=== PATIENT | male | born 1990 | race Caucasian/White ===

== ENCOUNTER 2016-12-03 15:03 | Emergency (ER) | payer OTHER ==
[2016-12-03] MEDS ORDERED: METHOCARBAMOL 750 MG TABLET PO ONE (18:25)
[2016-12-03] MEDS ORDERED: KETOROLAC TROMETHAMINE 60 MG/2 ML SDV IM ONE (18:25)
--- NOTE | 2016-12-03 18:26 | ER Document Report ---
ED General - General Chief Complaint: Back Pain Stated Complaint: BACK PAIN Information source: Patient TRAVEL OUTSIDE OF THE [place] IN LAST 30 DAYS: No - HPI Onset: Other - This 26-year-old male who states he's had lower back pain more since ow although he's had it most of his life - Related Data Allergies/Adverse Reactions: Penicillins Allergy (Verified 12/03/16 15:21) tramadol [Tramadol] Allergy (Verified 12/03/16 15:21) Past Medical History - General Information source: Patient - Social History Smoking Status: Current Every Day Smoker Chew tobacco use (# tins/day): Yes Frequency of alcohol use: Social Drug Abuse: None Family History: Arthritis, CAD, DM, Hyperlipidemia, Hypertension, Malignancy, Thyroid Disfunction Patient has suicidal ideation: No Patient has homicidal ideation: No - Past Medical History Cardiac Medical History: Reports: Hx Hypertension Neurological Medical History: Reports: Hx Seizures Musculoskeltal Medical History: Reports Hx Arthritis, Reports Hx Musculoskeletal Deformity, Reports Hx Musculoskeletal Trauma Psychiatric Medical History: Reports: Hx Anxiety, Hx Attention Deficit Hyperactivity Disorder, Hx Bipolar Disorder, Hx Borderline Personality Disorder , Hx Depression, Hx Post Traumatic Stress Disorder, Hx Schizophrenia - paranoid schezophrenia Past Surgical History: Reports: Hx Orthopedic Surgery - rt knee, Hx Tonsillectomy - Immunizations Immunizations up to date: Yes Hx Diphtheria, Pertussis, Tetanus Vaccination: Yes Review of Systems - Review of Systems Constitutional: No symptoms reported EENT: No symptoms reported Cardiovascular: No symptoms reported Respiratory: No symptoms reported Gastrointestinal: No symptoms reported Genitourinary: No symptoms reported Male Genitourinary: No symptoms reported Musculoskeletal: No symptoms reported Skin: No symptoms reported Hematologic/Lymphatic: No symptoms reported Neurological/Psychological: No symptoms reported Physical Exam - Vital signs Interpretation: Normal - General General appearance: Appears well, Alert - HEENT Head: Normocephalic, Atraumatic Eyes: Normal Pupils: PERRL - Respiratory Respiratory status: No respiratory distress Chest status: Nontender Breath sounds: Normal Chest palpation: Normal - Cardiovascular Rhythm: Regular Heart sounds: Normal auscultation Murmur: No - Abdominal Inspection: Normal Distension: No distension Bowel sounds: Normal Tenderness: Nontender Organomegaly: No organomegaly - Back Back: Normal, Nontender, Other - No numbness or tingling or loss of bowel or bladder function or saddle anesthesia ambulatory with rhythmic and steady gait good distal pulses. Patient does have palpable spasm right lateral of midline no step-off no crepitus no injury noted. - Extremities General upper extremity: Normal inspection, Nontender, Normal color, Normal ROM , Normal temperature General lower extremity: Normal inspection, Nontender, Normal color, Normal ROM , Normal temperature, Normal weight bearing. No: Anthony's sign - Neurological Neuro grossly intact: Yes Cognition: Normal Orientation: AAOx4 Sydnie Coma Scale Eye Opening: Spontaneous Sydnie Coma Scale Verbal: Oriented Sydnie Coma Scale Motor: Obeys Commands Sydnie Coma Scale Total: 15 Speech: Normal Motor strength normal: LUE, RUE, LLE, RLE Sensory: Normal - Psychological Associated symptoms: Normal affect, Normal mood - Skin Skin Temperature: Warm Skin Moisture: Dry Skin Color: Normal Discharge - Discharge Clinical Impression: Thoracic back pain, degenerative thoracic pain Disposition: HOME, SELF-CARE Prescriptions: Gabapentin [Neurontin 300 mg Capsule] 300 mg PO Q8 #90 cap
[2016-12-03 19:15] VITALS: BP 138/91
== END 2016-12-03 19:16 | disposition home or self-care (01) ==
LOC: ER 15:03
DX: M54.6 Pain in thoracic spine (principal); M51.34 Other intervertebral disc degeneration, thoracic region; M54.5 Low back pain; F17.210 Nicotine dependence, cigarettes, uncomplicated; I10 Essential (primary) hypertension; Z88.0 Allergy status to penicillin
CPT/HCPCS: 99283; 96372; J1885; J3490

== ENCOUNTER 2018-06-21 13:56 | Emergency (ER) | payer OTHER ==
[2018-06-21 14:09] VITALS: BP 153/79
[2018-06-21] MEDS ORDERED: DEXAMETHASONE SOD PHOS INJ 10 MG/1 ML VIAL IM ONE (14:39)
[2018-06-21] MEDS ORDERED: KETOROLAC TROMETHAMINE INJ/PF 30 MG/1 ML SDV IM ONE (14:39)
--- NOTE | 2018-06-21 14:45 | ER Document Report ---
HPI - HPI Pain Level: 4 Notes: Patient is a 27-year-old male who presents to the ED complaining of ongoing chronic and occasionally low back pain 2 years. Patient states that he did have an MRI couple years ago which showed degenerative disc disease of possible disc bulge. Patient states that he has been seen by his primary care doctor and was told that he should go to pain management as he was on narcotics. Patient states that he has been eating and drinking without difficulties. He is urinating normally and having normal bowel movements. He has not had any injections or procedures to his back. Denies any previous history of spinal abscess. Patient states that twisting movements make his pain worse. He has not had any recent injury. No other concerns or complaints. Patient is requesting narcotics. Denies any headache, fever, URI, sore throat, chest pain , palpitations, syncope, cough, shortness of breath, wheeze, dyspnea, abdominal pain, nausea/vomiting/diarrhea, urinary retention, dysuria, hematuria, loss of control of bowel or bladder, numbness/tingling, saddle anesthesia, muscle paralysis/weakness, or rash. - ROS Systems Reviewed and Negative: Yes All other systems reviewed and negative Past Medical History - Social History Smoking Status: Unknown if Ever Smoked Family History: Arthritis, CAD, DM, Hyperlipidemia, Hypertension, Malignancy, Thyroid Disfunction - Past Medical History Cardiac Medical History: Reports: Hx Hypertension Neurological Medical History: Reports: Hx Seizures Musculoskeletal Medical History: Reports Hx Arthritis, Reports Hx Musculoskeletal Deformity, Reports Hx Musculoskeletal Trauma Psychiatric Medical History: Reports: Hx Anxiety, Hx Attention Deficit Hyperactivity Disorder, Hx Bipolar Disorder, Hx Borderline Personality Disorder , Hx Depression, Hx Post Traumatic Stress Disorder, Hx Schizophrenia - paranoid schezophrenia Past Surgical History: Reports: Hx Orthopedic Surgery - rt knee, Hx Tonsillectomy - Immunizations Immunizations up to date: Yes Hx Diphtheria, Pertussis, Tetanus Vaccination: Yes Vertical Provider Document - CONSTITUTIONAL Agree With Documented VS: Yes Notes: PHYSICAL EXAMINATION: GENERAL: Well-appearing, well-nourished and in no acute distress. LUNGS: Breath sounds clear to auscultation bilaterally and equal. No wheezes rales or rhonchi. HEART: Regular rate and rhythm without murmurs, rubs, gallops. ABDOMEN: Soft, nontender, nondistended abdomen. No guarding, no rebound. No masses appreciated. Normal bowel sounds present. No CVA tenderness bilaterally. No pulsatile mass Musculoskeletal: LE's b/l: FROM to passive/active. Strength 5+/5. No deficits noted. No bony tenderness of extremities. Back: FROM to passive/active. Strength 5+/5. No vertebral point tenderness, stepoffs, or deformities. No other bony tenderness, erythema, swelling, or ecchymosis. SLR negative b/l. + mild tenderness to the T/L-paraspinal mm b/l, correlate with pain described. Mild spasming. No SI jt tenderness. No foot drop Extremities: No cyanosis, clubbing, or edema b/l. Peripheral pulses 2+. Capillary refill less than 2 seconds. NEUROLOGICAL: Normal speech, normal gait. Normal sensory, motor exams. Reflexes 2+ b/l. PSYCH: Normal mood, normal affect. SKIN: Warm, Dry, normal turgor, no rashes or lesions noted. - INFECTION CONTROL TRAVEL OUTSIDE OF THE [place] IN LAST 30 DAYS: No Course - Re-evaluation Re-evalutation: 06/21/18 14:42 Patient is an afebrile, well-hydrated, 27-year-old male who presents to the ED with acute on chronic low back pain. Vitals are acceptable. PE is otherwise unremarkable for any focal neurological deficits. Patient was given Decadron, Toradol. He has no significant tachycardia, tachypnea, or hypoxia. He is nontoxic-appearing and is tolerating p.o. without difficulties. There are no signs of infection. No other red flag symptoms noted. No other labs or imaging warranted at this time based on H&P. Low suspicion for any meningitis, fracture, expanding/ruptured AAA, cauda equina syndrome, epidural mass lesion/ abscess, herniated disc causing severe spinal stenosis, or other systemic infection at this time. Patient is aware that his condition can change from initial presentation and that he needs monitor symptoms closely for any acute changes. I will send him home with a prescription for baclofen and naproxen. Conservative measures otherwise for symptoms. Recheck with your PCM in 3-5 days. Consider consult with orthopedic/physical therapy. Return to the ED with any worsening/concerning symptoms otherwise as reviewed discharge. Patient is in agreement. - Vital Signs Vital signs: Temp Pulse Resp BP Pulse Ox 98.8 F 89 18 153/79 H 99 06/21/18 14:08 06/21/18 14:08 06/21/18 14:08 06/21/18 14:08 06/21/18 14:08 Discharge - Discharge Clinical Impression: Thoracic back pain Qualifiers: Chronicity: acute Back pain laterality: bilateral Qualified Code(s): M54.6 - Pain in thoracic spine Low back pain Qualifiers: Chronicity: acute Back pain laterality: bilateral Sciatica presence: without sciatica Qualified Code(s): M54.5 - Low back pain Condition: Stable Disposition: HOME, SELF-CARE Instructions: Low Back Pain ([facility]), Muscle Relaxers ([facility]) Additional Instructions: Rest, Ice, Compression Tylenol/ibuprofen as needed Light stretches daily Strength exercises as able Moist heat and massage may help F/u with your PCP in 3-5 days for a recheck Consider consult(s) with Orthopedics/physical therapy for ongoing/worsening symptoms Return to the ED with any worsening symptoms and/or development of fever, headache, chest pain, palpitations, syncope, shortness of breath, trouble breathing, abdominal pain, n/v/d, blood in stool/urine, loss of control of bowel /bladder, urinary retention, muscle weakness/paralysis, saddle anesthesia, numbness/tingling, or other worsening symptoms that are concerning to you. Prescriptions: Baclofen [Baclofen 10 mg Tablet] 5 - 10 mg PO BID PRN #15 tablet PRN Reason: Naproxen 500 mg PO BID PRN #30 tablet PRN Reason: Forms: Elevated Blood Pressure Referrals: [facility] [Provider Group] - Follow up as needed
== END 2018-06-21 15:16 | disposition home or self-care (01) ==
LOC: ER 13:56
DX: M54.6 Pain in thoracic spine (principal); M54.5 Low back pain; G89.29 Other chronic pain; Z79.899 Other long term (current) drug therapy; I10 Essential (primary) hypertension; R25.2 Cramp and spasm
CPT/HCPCS: 99283; 96372; J1885; J1100

== ENCOUNTER 2018-10-18 14:03 | Emergency (ER) | payer OTHER ==
[2018-10-18] MEDS ORDERED: KETOROLAC TROMETHAMINE 60 MG/2 ML SDV IM ONE (15:48)
[2018-10-18] MEDS ORDERED: DEXAMETHASONE SOD PHOS INJ 10 MG/1 ML VIAL IM ONE (15:48)
[2018-10-18] MEDS ORDERED: ONDANSETRON 4 MG TAB.RAPDIS PO ONE (15:50)
--- NOTE | 2018-10-18 16:21 | ER Document Report ---
ED General Pain - General Chief Complaint: Back Pain Stated Complaint: BACK PAIN/VOMITING Time Seen by Provider: 10/18/18 14:24 Mode of Arrival: Ambulatory Information source: Patient Notes: Patient is a 28-year-old male comes to the emergency room complaining of an acute exacerbation of chronic pain. Patient states that his "sciatica is acting up", his mid back thoracic pain where he has a herniated disc is acting up. States that he is not eating much he is complaining of the pain in the spine is stopped him from eating. He states his left sciatica is really worked into a knot and he can hardly sit or stand. States that it feels like it builds up with pressure and he just needs to be released. Patient states he does not want to move because the pain is so bad. He is vomited secondary to the amount of pain he is having. Primary pain though not only the left sciatica but also mid thoracic between the shoulder blade pain which is his area of major complaint today. He states that [facility] did a an MRI having been in 2014 found a herniated disc in this area and every once in a while it acts up and he needs extra pain medication. Patient states he was going to [facility] and they were working with him well but he somehow was a day late in returning paperwork to them in the chart to monitor dollars which she cannot pay so he is not been able to go to them for several months. He states his mother occasionally getting 5 hours here in $5 there he buy some boost to also help quiet his pain down but he has not had any in a couple of days. He also informs me he is applying for disability and is hoping that that will come through soon so that he can return to [facility] at that time because they will accept his disability papers. Patient denies any loss of urine or stool. Denies any recent injuries or trauma. Patient is lying on the gurney in no apparent distress playing with his phone when I walk in the room. TRAVEL OUTSIDE OF THE [place] IN LAST 30 DAYS: No - HPI Onset: Last week Onset/Duration: Gradual, Persistent, Worse Quality of pain: Achy, Pressure, Throbbing Severity: Severe Pain Level: 5 Context: Chronic problem Typical of prior episodes of painful crisis: Yes Genotype: unknown Associated symptoms: Other - Vomiting secondary to pain Exacerbated by: Standing, Movement, Walking Relieved by: Remaining still Similar symptoms previously: Yes Recently seen / treated by doctor: No - Related Data Allergies/Adverse Reactions: Penicillins Allergy (Verified 06/21/18 14:00) tramadol [Tramadol] Allergy (Verified 06/21/18 14:00) Past Medical History - General Information source: Patient - Social History Smoking Status: Current Every Day Smoker Cigarette use (# per day): Yes - Half-pack cigarettes a day Chew tobacco use (# tins/day): No Smoking Education Provided: Yes Frequency of alcohol use: Occasional Drug Abuse: None Family History: Reviewed & Not Pertinent, Arthritis, CAD, DM, Hyperlipidemia, Hypertension, Malignancy, Thyroid Disfunction Patient has suicidal ideation: No Patient has homicidal ideation: No - Past Medical History Cardiac Medical History: Reports: Hx Hypertension Neurological Medical History: Reports: Hx Seizures Renal/ Medical History: Denies: Hx Peritoneal Dialysis Musculoskeletal Medical History: Reports Hx Arthritis, Reports Hx Musculoskeletal Deformity, Reports Hx Musculoskeletal Trauma Psychiatric Medical History: Reports: Hx Anxiety, Hx Attention Deficit Hyperactivity Disorder, Hx Bipolar Disorder, Hx Borderline Personality Disorder , Hx Depression, Hx Post Traumatic Stress Disorder, Hx Schizophrenia - paranoid schezophrenia Past Surgical History: Reports: Hx Orthopedic Surgery - rt knee, Hx Tonsillectomy - Immunizations Immunizations up to date: Yes Hx Diphtheria, Pertussis, Tetanus Vaccination: Yes Review of Systems - Review of Systems Constitutional: No symptoms reported EENT: No symptoms reported Cardiovascular: No symptoms reported Respiratory: No symptoms reported Gastrointestinal: See HPI, Vomiting Genitourinary: No symptoms reported Male Genitourinary: No symptoms reported Musculoskeletal: See HPI, Back pain Skin: No symptoms reported Hematologic/Lymphatic: No symptoms reported Neurological/Psychological: No symptoms reported -: Yes All other systems reviewed and negative Physical Exam - Vital signs Vitals: Temp Pulse Resp BP Pulse Ox 98.8 F 85 14 147/89 H 98 10/18/18 14:09 10/18/18 14:09 10/18/18 14:09 10/18/18 14:09 10/18/18 14:09 Interpretation: Hypertensive - Notes Notes: PHYSICAL EXAMINATION: GENERAL: Patient is a well-nourished well-developed morbidly obese 28-year-old male who on physical exam is in no apparent distress. Patient is laying comfortably on the gurney playing with his phone as I walk in the room. At that point patient was holding down and starts to mom. HEAD: Atraumatic, normocephalic. EYES: Pupils equal round and reactive to light, extraocular movements intact, sclera anicteric, conjunctiva are normal. ENT: Nares patent, oropharynx clear without exudates. Moist mucous membranes. NECK: Normal range of motion, supple without lymphadenopathy LUNGS: Breath sounds clear to auscultation bilaterally and equal. No wheezes rales or rhonchi. HEART: Regular rate and rhythm without murmurs ABDOMEN: Soft, nontender, nondistended abdomen. No guarding, no rebound. No masses appreciated. Musculoskeletal: Examination of patient's back shows that he has some mild tenderness in the lower lumbar spine area to palpation with a positiv sciatic notch tenderness on the left-hand side. Patient has good DTRs in the lower extremities when distracted. He has a good vascular exam with good dorsalis pedal pulses bilateral straight leg raise on the left is positive to 25 degrees. Patient has good strength against resistance with the lower extremities with abduction and abduction. No foot droop is seen. There is no saddle paresthesia. Patient has good sensation throughout the lower extremities. NEUROLOGICAL: Cranial nerves grossly intact. Normal speech, normal gait. Normal sensory, motor exams PSYCH: Normal mood, normal affect. SKIN: Warm, Dry, normal turgor, no rashes or lesions noted. Course - Re-evaluation Re-evalutation: 10/18/18 21:14 I had a long talk with patient informed him that he needed to get back with a plan of action with his pain management group at [facility]. I have also given him the name of the orthopedic doctors masonry teacher and informed him that he can contact her office to see if they can accommodate him if the pain discomfort continues to get worse. I went back in and looked at the other histories of patient being here and the back pains that he has complained of in the past and has been treated pretty much basically the same way at all events he has been put on or given in the ER Toradol and Decadron shots together been sent home on baclofen gabapentin and occasionally steroid pack. Therefore it is how I am going to treat patient this time. And he accepted that treatment plan. - Vital Signs Vital signs: Temp Pulse Resp BP Pulse Ox 99.1 F 73 16 140/69 H 99 10/18/18 17:53 10/18/18 17:53 10/18/18 17:53 10/18/18 17:53 10/18/18 17:53 Discharge - Discharge Clinical Impression: Sciatica Qualifiers: Laterality: left Qualified Code(s): M54.32 - Sciatica, left side Degenerative disc disease Qualifiers: Spinal region: thoracic Qualified Code(s): M51.34 - Other intervertebral disc degeneration, thoracic region Condition: Stable Disposition: HOME, SELF-CARE Instructions: Herniated Disc ([facility]), Ice Packs ([facility]), Muscle Strain ([facility]) Additional Instructions: As we discussed you you need to establish with [facility] again or someone else who you prefer. I will give you the names of the orthopedics masonry teacher you may contact your office to see if they can accommodate you. Ice to the back 3 times a day. Avoid do any lifting moving or pulling return to ER if you have any concerns or problems. As we discussed I went back and searched over year history and pre-much the treatment of giving you is what is a combination of all for everyone's treatment. We will attempt the same thing along with some medication for nausea. Prescriptions: Baclofen [Baclofen 10 mg Tablet] 10 mg PO TID #30 tab Gabapentin [Neurontin 300 mg Capsule] 300 mg PO Q8 #90 cap Prednisone 10 mg PO ASDIR PRN 6 Days #1 tab.ds.pk PRN Reason: Promethazine HCl [Phenergan 25 mg Tablet] 1 tab PO Q6H PRN #12 tablet PRN Reason: Forms: Smoking Cessation Education [facility] [NO LOCAL MD] - Follow up as needed
[2018-10-18 17:54] VITALS: BP 140/69
== END 2018-10-18 17:55 | disposition home or self-care (01) ==
LOC: ER 14:03
DX: M54.32 Sciatica, left side (principal); M51.34 Other intervertebral disc degeneration, thoracic region; M54.9 Dorsalgia, unspecified; G89.29 Other chronic pain; R11.10 Vomiting, unspecified; F17.210 Nicotine dependence, cigarettes, uncomplicated; I10 Essential (primary) hypertension
CPT/HCPCS: 99283; 96372; J1885; S0119; J1100

== ENCOUNTER 2018-10-24 09:45 | Emergency (ER) | payer OTHER ==
[2018-10-24 09:50] VITALS: BP 143/86
--- NOTE | 2018-10-24 11:42 | ER Document Report ---
ED Flu Like - General Chief Complaint: Flu Symptoms Stated Complaint: FLU SYMPTOMS Time Seen by Provider: 10/24/18 10:49 Mode of Arrival: Ambulatory Information source: Patient Notes: 28-year-old male presents to ED for complaint of upper respiratory congestion cough cold times 8 days. He states he is concerned for an ear infection. He states he has a plugged feeling in his ears but he does not have any pain in his ears. Patient is alert and oriented respirations regular and unlabored speaking in full sentences. TRAVEL OUTSIDE OF THE [place] IN LAST 30 DAYS: No - HPI Onset: Last week Timing/Duration: Persistent Quality of pain: Achy, Other Severity: Mild - Plugged feeling to his ears Pain Level: 2 Associated symptoms: Body/muscle aches, Nonproductive cough, Earache - Plan, Rhinnorhea, Sinus pain/drainage Similar symptoms previously: Yes Recently seen / treated by doctor: Yes - Related Data Allergies/Adverse Reactions: Penicillins Allergy (Verified 06/21/18 14:00) tramadol [Tramadol] Allergy (Verified 06/21/18 14:00) Past Medical History - General Information source: Patient - Social History Smoking Status: Current Every Day Smoker Cigarette use (# per day): Yes - PPD Chew tobacco use (# tins/day): No Smoking Education Provided: Yes - 4 minutes Frequency of alcohol use: Social - 2 drinks a week Drug Abuse: None Lives with: Parents Family History: Reviewed & Not Pertinent, Arthritis, CAD, DM, Hyperlipidemia, Hypertension, Malignancy, Thyroid Disfunction Patient has suicidal ideation: No Patient has homicidal ideation: No - Past Medical History Cardiac Medical History: Reports: Hx Hypertension Pulmonary Medical History: Reports: None EENT Medical History: Reports: None Neurological Medical History: Reports: Hx Seizures Endocrine Medical History: Reports: None Renal/ Medical History: Reports: None Malignancy Medical History: Reports None GI Medical History: Reports: None Musculoskeletal Medical History: Reports Hx Arthritis, Reports Hx Musculoskeletal Deformity, Reports Hx Musculoskeletal Trauma Skin Medical History: Reports None Psychiatric Medical History: Reports: Hx Anxiety, Hx Attention Deficit Hyperactivity Disorder, Hx Bipolar Disorder, Hx Borderline Personality Disorder , Hx Depression, Hx Post Traumatic Stress Disorder, Hx Schizophrenia - paranoid schezophrenia Traumatic Medical History: Reports: Hx Fractures - Knee Infectious Medical History: Reports: None Past Surgical History: Reports: Hx Adenoidectomy, Hx Myringotomy, Hx Orthopedic Surgery - rt knee, Hx Tonsillectomy - Immunizations Immunizations up to date: Yes Hx Diphtheria, Pertussis, Tetanus Vaccination: Yes Review of Systems - Review of Systems Notes: REVIEW OF SYSTEMS: CONSTITUTIONAL : Denies fever, chills, or sweats. He has had cough cold congestion for 8 days and plugged ears for the last couple days EENT: Patient states he has had runny nose congestion sore throat and plugged ears. Respiratory symptoms started a week ago the plugged ears have been for the last couple days. CARDIOVASCULAR: Denies chest pain. Denies palpitations or racing or irregular heart beat. Denies ankle edema. RESPIRATORY: Denies cough, cold, or chest congestion. Denies shortness of breath, difficulty breathing, or wheezing. GASTROINTESTINAL: Denies abdominal pain or distention. Denies nausea, vomiting , or diarrhea. Denies blood in vomitus, stools, or per rectum. Denies black, tarry stools. Denies constipation. GENITOURINARY: Denies difficulty urinating, painful urination, burning, frequency, blood in urine, or discharge. MUSCULOSKELETAL: Denies back or neck pain or stiffness. Denies joint pain or swelling. SKIN: Denies rash, lesions or sores. HEMATOLOGIC : Denies easy bruising or bleeding. LYMPHATIC: Denies swollen, enlarged glands. NEUROLOGICAL: Denies confusion or altered mental status. Denies passing out or loss of consciousness. Denies dizziness or lightheadedness. Denies headache. Denies weakness or paralysis or loss of use of either side. Denies problems with gait or speech. Denies sensory loss, numbness, or tingling. Denies seizures. PSYCHIATRIC: Denies anxiety or stress. Denies depression, suicidal ideation, or homicidal ideation. ALL OTHER SYSTEMS REVIEWED AND NEGATIVE. Dictation was performed using [employer] voice recognition software PHYSICAL EXAMINATION: GENERAL: Well-appearing, well-nourished and in no acute distress. HEAD: Atraumatic, normocephalic. EYES: Pupils equal round and reactive to light, extraocular movements intact, sclera anicteric, conjunctiva are normal. ENT: Nasal passage swollen with greenish white drainage oral mucosa intact with postnasal drip tympanic membranes intact with no redness or swelling bulging or inflammation.. Moist mucous membranes. NECK: Normal range of motion, supple without lymphadenopathy LUNGS: Breath sounds clear to auscultation bilaterally and equal. No wheezes rales or rhonchi. HEART: Regular rate and rhythm without murmurs ABDOMEN: Soft, nontender, nondistended abdomen. No guarding, no rebound. No masses appreciated. Musculoskeletal: Normal range of motion, no pitting or edema. No cyanosis. NEUROLOGICAL: Cranial nerves grossly intact. Normal speech, normal gait. Normal sensory, motor exams PSYCH: Normal mood, normal affect. SKIN: Warm, Dry, normal turgor, no rashes or lesions noted. Physical Exam - Vital signs Vitals: Temp Pulse Resp BP Pulse Ox 97.9 F 93 14 143/86 H 98 10/24/18 09:49 10/24/18 09:49 10/24/18 09:49 10/24/18 09:49 10/24/18 09:49 Course - Vital Signs Vital signs: Temp Pulse Resp BP Pulse Ox 97.9 F 93 14 143/86 H 98 10/24/18 09:49 10/24/18 09:49 10/24/18 09:49 10/24/18 09:49 10/24/18 09:49 Discharge - Discharge Clinical Impression: Otalgia of both ears URI (upper respiratory infection) Qualifiers: URI type: unspecified URI Qualified Code(s): J06.9 - Acute upper respiratory infection, unspecified Condition: Stable Disposition: HOME, SELF-CARE Instructions: Family Physicians / Practices Additional Instructions: UPPER RESPIRATORY ILLNESS: You have a viral infection of the respiratory passages -- a "cold." This common infection causes nasal congestion, drainage, and often sore throat and cough. It is highly contagious. The disease usually lasts about 10 to 14 days. There is no "cure" for the viral infection -- it must run its course. If there is a complication, such as bacterial infection in the nose, sinuses, middle ear, or bronchial tubes, antibiotics may be required. The antibiotics won't affect the virus. Drink plenty of fluids. A humidifier may help. An expectorant medication or decongestant may make you more comfortable. Use acetaminophen or ibuprofen for fever or aches. See the doctor if fever persists over two days, if there is any significant worsening of your symptoms, or if you simply fail to improve as expected. COUGH-SUPPRESSANT & EXPECTORANT MEDICATION: You are to use a cough medication as needed for relief of symptoms. This medicine is a combination of an expectorant (to make the mucous thinner and more easily "coughed up") and a cough suppressant (to reduce the frequency of coughing). The cough-suppressant medicine is related to narcotics. You may experience mild nausea and sleepiness. Some patients who are very sensitive to narcotics may have stomach pain from this medicine. Taking the medicine with food reduces these side effects. Do not drive or work with machinery until you know how this medicine affects you. The expectorant should have no side effects. Iodine-containing expectorants (such as organidin) should not be taken by persons with active thyroid disease unless approved by your doctor. Call the doctor if you develop shortness of breath, hives, rash, itching, lightheadedness, or severe nausea and vomiting. INHALED BRONCHODILATORS: You have received a treatment of and/or prescription for an inhaled bronchodilator -- a medication which stimulates the airways in the lung to dilate. This improves the flow of air in asthma, bronchitis, and emphysema. These medicines have some similarity to adrenaline, and can cause similar side effects: shakiness, racing heart, and a sense of nervousness. These side effects decrease with time. Contact your doctor if these side effects are severe. Do not over-use the medicine. Too-frequent use of the inhaler may make it ineffective. Call your doctor if the inhaler is not controlling your symptoms at the prescribed doses. USE OF ACETAMINOPHEN (Tylenol): Acetaminophen may be taken for pain relief or fever control. It's much safer than aspirin, offering a wider range of "safe" dosages. It is safe during . Some brand names are Tylenol, Panadol, Datril, Anacin 3, Tempra, and Liquiprin. Acetaminophen can be repeated every four hours. The following are maximum recommended dosages: >89 pounds or adults 650 mg to 900 mg Acetaminophen can be repeated every four hours. Maximum dose not to exceed 4000 mg a day. SMOKING: If you smoke, you should stop smoking. The tar and chemicals in cigarette smoke are harmful. Smoking has been shown to cause: emphysema chronic bronchitis lung cancer mouth and throat cancer stomach and pancreas cancer premature aging defects In addition, smoking increases ear and lung infections in children of smokers. FOLLOW-UP CARE: If you have been referred to a physician for follow-up care, call the physician s office for an appointment as you were instructed or within the next two days. If you experience worsening or a significant change in your symptoms, notify the physician immediately or return to the Emergency Department at any time for re-evaluation. Forms: Elevated Blood Pressure, Smoking Cessation Education Referrals: ANNAI GREENBERG DO [ASSOCIATE] - Follow up as needed
== END 2018-10-24 11:41 | disposition home or self-care (01) ==
LOC: ER 09:45
DX: J06.9 Acute upper respiratory infection, unspecified (principal); H92.03 Otalgia, bilateral; R09.81 Nasal congestion; R05 Cough; M79.10 Myalgia, unspecified site; F17.210 Nicotine dependence, cigarettes, uncomplicated; I10 Essential (primary) hypertension
CPT/HCPCS: 99283; 99406

== ENCOUNTER 2020-01-18 18:20 | Observation (INO) | payer MEDICAID ==
--- NOTE | 2020-01-18 19:40 | ER Document Report ---
ED Medical Screen (RME) - General Chief Complaint: Rectal Pain Stated Complaint: RECTAL PAIN Time Seen by Provider: 01/18/20 19:12 Mode of Arrival: Ambulatory Information source: Patient Notes: 29-year-old male patient presenting to the emergency department with concern for hemorrhoid. Patient reports he has a hemorrhoid the size of a golf ball. He states it is been there for about 6 days. He reports he is worried about having a stool so he has not had anything to eat in approximately 6 days. Exam deferred until patient is in a room. I have greeted and performed a rapid initial assessment of this patient. A comprehensive ED assessment and evaluation of the patient, analysis of test results and completion of the medical decision making process will be conducted by additional ED providers. I have specifically instructed the patient or family members with the patient to immediately return to any nursing staff should anything change in the patient's condition or with their chief complaint. TRAVEL OUTSIDE OF THE [place] IN LAST 30 DAYS: No - Related Data Allergies/Adverse Reactions: Penicillins Allergy (Verified 01/18/20 19:09) tramadol [Tramadol] Allergy (Verified 01/18/20 19:09) Past Medical History - Social History Frequency of alcohol use: None Drug Abuse: None - Past Medical History Cardiac Medical History: Reports: Hx Hypertension Neurological Medical History: Reports: Hx Seizures Renal/ Medical History: Denies: Hx Peritoneal Dialysis Musculoskeltal Medical History: Reports Hx Arthritis, Reports Hx Musculoskeletal Deformity, Reports Hx Musculoskeletal Trauma Psychiatric Medical History: Reports: Hx Anxiety, Hx Attention Deficit Hyperactivity Disorder, Hx Bipolar Disorder, Hx Borderline Personality Disorder, Hx Depression, Hx Post Traumatic Stress Disorder, Hx Schizophrenia - paranoid schezophrenia Traumatic Medical History: Reports: Hx Fractures - Knee Past Surgical History: Reports: Hx Adenoidectomy, Hx Myringotomy, Hx Orthopedic Surgery - rt knee, Hx Tonsillectomy - Immunizations Immunizations up to date: Yes Hx Diphtheria, Pertussis, Tetanus Vaccination: Yes Physical Exam - Vital signs Vitals: Temp Pulse Resp BP Pulse Ox 98.9 F 114 H 18 106/84 100 01/18/20 18:47 01/18/20 18:47 01/18/20 18:47 01/18/20 18:47 01/18/20 18:47 Course - Vital Signs Vital signs: Temp Pulse Resp BP Pulse Ox 98.9 F 114 H 18 106/84 100 01/18/20 18:47 01/18/20 18:47 01/18/20 18:47 01/18/20 18:47 01/18/20 18:47
[2020-01-18] MEDS ORDERED: ONDANSETRON HCL INJ/PF 4 MG/2 ML SDV IV ONE (23:05)
[2020-01-18] MEDS ORDERED: MORPHINE SULFATE 10 MG/ML INJ IV ONE (23:05)
[2020-01-18 23:47] LABS: ABSOLUTE BASOPHILS # (AUTO) 0.1 10^3/uL (0.0-0.2); ABSOLUTE EOSINOPHILS # (AUTO) 0.1 10^3/uL (0.0-0.6); ABSOLUTE MONOCYTES (AUTO) 1.1 10^3/uL (0.1-1.4); ABSOLUTE NEUT (AUTO) 9.3 10^3/uL (1.7-8.2); BASOPHILS % (AUTO) 0.4 % (0-2); EOSINOPHILS % (AUTO) 0.6 % (0-6); HEMATOCRIT 45.9 % (37.9-51.0); HEMOGLOBIN 15.9 g/dL (13.5-17.0); MEAN CORPUSCULAR HEMOGLOBIN 30.3 pg (27.0-33.4); MEAN CORPUSCULAR HGB CONC 34.6 g/dL (32.0-36.0); MEAN CORPUSCULAR VOLUME 88 fl (80-97); MONOCYTES % (AUTO) 8.7 % (3-13); PLATELET COUNT 279 10^3/uL (150-450); RED BLOOD COUNT 5.24 10^6/uL (4.35-5.55); RED CELL DISTRIBUTION WIDTH 13.7 % (11.5-14.0); SEGMENTED NEUTROPHILS % (AUTO) 74.3 % (42-78); TOTAL CELLS COUNTED % (AUTO) 100 %; WHITE BLOOD COUNT 12.5 10^3/uL (4.0-10.5)
[2020-01-19 00:02] LABS: ANION GAP 11 (5-19); BLOOD UREA NITROGEN 15 mg/dL (7-20); CALCIUM 9.3 mg/dL (8.4-10.2); CARBON DIOXIDE 28 mmol/L (22-30); CHLORIDE 99 mmol/L (98-107); GLUCOSE 116 mg/dL (75-110); POTASSIUM 3.5 mmol/L (3.6-5.0)
[2020-01-19] MEDS ORDERED: ONDANSETRON HCL INJ/PF 4 MG/2 ML SDV IV PRN (00:30)
[2020-01-19] MEDS ORDERED: DEXTROSE 5%-LACTATED RINGERS 1,000 ML IV PRN (00:30)
[2020-01-19] MEDS ORDERED: HYDROMORPHONE HCL INJ/PF 2 MG/ML AMPULE IV ONE (00:32)
--- NOTE | 2020-01-19 00:34 | ER Document Report ---
ED GI Bleed / Rectal Pain - General Chief Complaint: Rectal Pain Stated Complaint: RECTAL PAIN Time Seen by Provider: 01/18/20 19:12 Mode of Arrival: Ambulatory Notes: Patient is a 29-year-old male that comes emergency department for chief complaint of rectal pain. He states the area has been worsening for 6 days now and now he cannot even sit. He states he has been eating less to avoid having bowel movements although he still can have bowel movements. He denies fever/chills, nausea/vomiting. He states he has a history of hemorrhoids but he has never had anything this bad before. Past medical history includes hypertension, seizures, anxiety/bipolar. Mother at bedside. TRAVEL OUTSIDE OF THE [place] IN LAST 30 DAYS: No - Related Data Allergies/Adverse Reactions: Penicillins Allergy (Verified 01/18/20 19:09) tramadol [Tramadol] Allergy (Verified 01/18/20 19:09) Past Medical History - General Information source: Patient - Social History Smoking Status: Current Every Day Smoker Frequency of alcohol use: None Drug Abuse: None Family History: Reviewed & Not Pertinent, Arthritis, CAD, DM, Hyperlipidemia, Hypertension, Malignancy, Thyroid Disfunction Patient has suicidal ideation: No Patient has homicidal ideation: No - Past Medical History Cardiac Medical History: Reports: Hx Hypertension Neurological Medical History: Reports: Hx Seizures Renal/ Medical History: Denies: Hx Peritoneal Dialysis Musculoskeletal Medical History: Reports Hx Arthritis, Reports Hx Musculoskeletal Deformity, Reports Hx Musculoskeletal Trauma Psychiatric Medical History: Reports: Hx Anxiety, Hx Attention Deficit Hyperactivity Disorder, Hx Bipolar Disorder, Hx Borderline Personality Disorder, Hx Depression, Hx Post Traumatic Stress Disorder, Hx Schizophrenia - paranoid schezophrenia Traumatic Medical History: Reports: Hx Fractures - Knee Past Surgical History: Reports: Hx Adenoidectomy, Hx Cholecystectomy, Hx Myringotomy, Hx Orthopedic Surgery - rt knee, Hx Tonsillectomy - Immunizations Immunizations up to date: Yes Hx Diphtheria, Pertussis, Tetanus Vaccination: Yes Review of Systems - Review of Systems Constitutional: No symptoms reported EENT: No symptoms reported Cardiovascular: No symptoms reported Respiratory: No symptoms reported Gastrointestinal: See HPI Genitourinary: No symptoms reported Male Genitourinary: No symptoms reported Musculoskeletal: No symptoms reported Skin: See HPI Hematologic/Lymphatic: No symptoms reported Neurological/Psychological: No symptoms reported Physical Exam - Vital signs Vitals: Temp Pulse Resp BP Pulse Ox 98.9 F 114 H 18 106/84 100 01/18/20 18:47 01/18/20 18:47 01/18/20 18:47 01/18/20 18:47 01/18/20 18:47 - Notes Notes: GENERAL: Patient is somewhat uncomfortable, lying on his side HEAD: Normocephalic, atraumatic. EYES: Pupils equal, round, and reactive to light. Extraocular movements intact. ENT: Oral mucosa moist, tongue midline. Oropharynx unremarkable. Airway patent. LUNGS: Clear to auscultation bilaterally, no wheezes, rales, or rhonchi. No respiratory distress. HEART: Regular rate and rhythm. No murmur ABDOMEN: Soft, non-tender. Non-distended. Bowel sounds present in all 4 quadrants. GENITOURINARY: No concerning findings, swelling, pain RECTAL: There is tenderness on rectal examination at the 6:00 aspect. There is a bluish area over the 8 o'clock position at the rectum which extends out to a erythematous, swollen, very tender area next to the anus. No drainage noted. Otherwise unremarkable. EXTREMITIES: Moves all 4 extremities spontaneously. No edema, normal radial and dorsalis pedis pulses bilaterally. No cyanosis. BACK: no cervical, thoracic, lumbar midline tenderness. No saddle anesthesia, normal distal neurovascular exam. Moves all extremities in full range of motion. NEUROLOGICAL: Alert and oriented x3. Normal speech. Cranial nerves II through XII grossly intact. PSYCH: Normal affect, normal mood. SKIN: Warm, dry, normal turgor. No rashes or lesions noted. Course - Re-evaluation Re-evalutation: There is tenderness on rectal exam and there is an area that appears to be a hemorrhoid which has developed into a perianal abscess. There is no current d rainage. Unremarkable otherwise. Dr. Pena did come to bedside and evaluate the patient, he agrees this is a perianal abscess. I spoke with Dr. Roberts, surgeon lamination operator, he will accept patient to his service with plan to perform drainage in the operating room. Discussed with patient and mother, they state appreciation and agreement with plan. - Vital Signs Vital signs: Temp Pulse Resp BP Pulse Ox 98.6 F 84 16 115/70 99 01/19/20 03:37 01/19/20 03:37 01/19/20 03:37 01/19/20 03:37 01/19/20 03:37 - Laboratory Result Diagrams: 01/18/20 23:30 01/18/20 23:30 Laboratory results interpreted by me: 01/18/20 01/18/20 23:30 23:30 WBC 12.5 H Absolute Neuts (auto) 9.3 H Potassium 3.5 L Glucose 116 H Discharge - Discharge Clinical Impression: Perianal abscess Condition: Stable Disposition: ADMITTED OBSERVATION Admitting Provider: Surgicalist Unit Admitted: Surgical Floor
[2020-01-19] MEDS ORDERED: METRONIDAZOLE 500 MG/NS RTU 500 MG/100 ML RTUPB IV ONE (01:00)
[2020-01-19] MEDS ORDERED: LEVOFLOXACIN 500 MG/D5W RTU 500 MG/100 ML RTUPB IV ONE (01:00)
[2020-01-19] MEDS: MORPHINE SULFATE 10 MG/ML INJ IV PRN ×3 (03:19→17:16)
--- NOTE | 2020-01-19 06:22 | PDOC H&P ---
History of Present Illness Admission Date/PCP: 01/19/20 00:37 SUKUMAR SALINAS PA-C History of Present Illness: SUE STOKES is a 29 year old male with a 6-day history of pain and swelling around the rectum. Patient has had hemorrhoids before, however they were different from this particular presentation. The patient reports a large amount of swelling, pain, induration, and erythema in the left anterior position in the perirectal area. Patient denies fevers, chills, nausea, vomiting, melena, hematochezia, dizziness, orthostasis, fatigue, blurry vision. He does report malaise, and perirectal pain. He describes the pain is sharp and stabbing. It is 10 out of 10. Narcotics make it better, palpation and movement make it worse. Past Medical History Cardiac Medical History: Reports: Hypertension Neurological Medical History: Reports: Seizures Musculoskeltal Medical History: Reports: Arthritis Psychiatric Medical History: Reports: Attention Deficit Hyperactivity Disorder, Bipolar Disorder, Depression, Post Traumatic Stress Disorder Past Surgical History Past Surgical History: Reports: Cholecystectomy, Orthopedic Surgery - rt knee, Tonsillectomy Social History Smoking Status: Current Every Day Smoker - Advance Directive Resuscitation Status: Full Code Family History Family History: Reviewed & Not Pertinent, Arthritis, CAD, DM, Hyperlipidemia, Hypertension, Malignancy, Thyroid Disfunction Parental Family History Reviewed: Yes Children Family History Reviewed: Yes Sibling(s) Family History Reviewed.: Yes Medication/Allergy Home Medications: Clonidine HCl [Catapres 0.3 mg Tablet] 0.3 mg PO QHS 02/10/16 Cyclobenzaprine HCl [Flexeril 10 mg Tablet] 10 mg PO TIDP PRN #15 tab 02/10/16 Divalproex Sodium [Depakote ER 500 mg Tab.sr] 02/10/16 Fluoxetine HCl [Prozac 20 mg Capsule] 02/10/16 Lurasidone HCl [Latuda] 02/10/16 Amoxicillin 500 mg PO BID 7 Days capsule 09/30/16 Azithromycin [Zithromax 250 mg Tablet] 250 mg PO ASDIR PRN #6 tablet 09/30/16 Clindamycin HCl 300 mg PO Q6H 7 Days capsule 09/30/16 Diclofenac Sodium [Diclofenac Sodium ER] 100 mg PO DAILY 5 Days tab.sr.24h 09/30/16 Oxycodone HCl/Acetaminophen [Percocet 5-325 mg Tablet] 1 - 2 tab PO Q4H PRN #15 tablet 09/30/16 Gabapentin [Neurontin 300 mg Capsule] 300 mg PO Q8 #90 cap 12/03/16 Baclofen [Baclofen 10 mg Tablet] 5 - 10 mg PO BID PRN #15 tablet 06/21/18 Naproxen 500 mg PO BID PRN #30 tablet 06/21/18 Baclofen [Baclofen 10 mg Tablet] 10 mg PO TID #30 tab 10/18/18 Gabapentin [Neurontin 300 mg Capsule] 300 mg PO Q8 #90 cap 10/18/18 Prednisone 10 mg PO ASDIR PRN 6 Days #1 tab.ds.pk 10/18/18 Promethazine HCl [Phenergan 25 mg Tablet] 1 tab PO Q6H PRN #12 tablet 10/18/18 Oxycodone HCl/Acetaminophen [Percocet 5-325 mg Tablet] 1 tab PO Q4H PRN #10 tablet 06/11/19 Allergies/Adverse Reactions: Penicillins Allergy (Verified 01/18/20 19:09) tramadol [Tramadol] Allergy (Verified 01/18/20 19:09) Review of Systems Constitutional: ABSENT: chills, fatigue, fever(s), weakness Eyes: ABSENT: visual disturbances Nose, Mouth, and Throat: ABSENT: mouth pain, sore throat Cardiovascular: ABSENT: chest pain Respiratory: ABSENT: cough Gastrointestinal: PRESENT: other - Perirectal pain and swelling. ABSENT: abdominal pain Genitourinary: ABSENT: dysuria Musculoskeletal: ABSENT: back pain Integumentary: ABSENT: pruritus, rash Neurological: ABSENT: confusion, convulsions, dizziness Psychiatric: PRESENT: anxiety, depression Endocrine: ABSENT: cold intolerance, heat intolerance Hematologic/Lymphatic: ABSENT: easy bleeding, easy bruising Physical Exam Vital Signs: Temp Pulse Resp BP Pulse Ox 98.6 F 84 16 115/70 99 01/19/20 03:37 01/19/20 03:37 01/19/20 03:37 01/19/20 03:37 01/19/20 03:37 Intake & Output 01/17/20 01/18/20 01/19/20 06:59 06:59 06:59 Weight 103.1 kg General appearance: PRESENT: cooperative, mild distress Head exam: PRESENT: atraumatic, normocephalic Eye exam: PRESENT: EOMI, PERRLA. ABSENT: scleral icterus Mouth exam: PRESENT: moist, neck supple Neck exam: ABSENT: meningismus, tenderness, thyromegaly, tracheal deviation Respiratory exam: PRESENT: clear to auscultation willian, unlabored. ABSENT: chest wall tenderness, wheezes Cardiovascular exam: ABSENT: tachycardia Vascular exam: PRESENT: normal capillary refill. ABSENT: pallor GI/Abdominal exam: PRESENT: soft. ABSENT: distended, firm, rigid, tenderness Rectal exam: PRESENT: tenderness - Anteriorly, other - Induration and fluctuance anteriorly, consistent with perirectal abscess Extremities exam: ABSENT: clubbing Musculoskeletal exam: ABSENT: deformity Neurological exam: PRESENT: alert, awake, oriented to person, oriented to place, oriented to time, oriented to situation Psychiatric exam: PRESENT: agitated, anxious, unusual affect Focused psych exam: ABSENT: delusional Skin exam: ABSENT: cyanosis, erythema, jaundice Results Laboratory Results: 01/18/20 23:30 01/18/20 23:30 01/18/20 01/18/20 23:30 23:30 WBC 12.5 H RBC 5.24 Hgb 15.9 Hct 45.9 MCV 88 MCH 30.3 MCHC 34.6 RDW 13.7 Plt Count 279 Seg Neutrophils % 74.3 Sodium 137.8 Potassium 3.5 L Chloride 99 Carbon Dioxide 28 Anion Gap 11 BUN 15 Creatinine 0.70 Est GFR ( Amer) > 60 Glucose 116 H Calcium 9.3 Assessment & Plan - Diagnosis (1) Perirectal abscess Is this a current diagnosis for this admission?: Yes - Plan Summary Plan Summary: This is a 29-year-old male with a perirectal abscess. He suffers from PTSD and several other "mental problems" per his report. The patient has a perirectal abscess that will require drainage. The patient has declined bedside incision and drainage. We will plan for treatment in the operating room today. Risks/benefits discussed, informed consent obtained, and all questions answered.
[2020-01-19] MEDS ORDERED: INFLUENZA QUAD (6MOS+) 2019-20 VAC 0.5 ML SYR IM ONE (06:48)
--- NOTE | 2020-01-19 09:32 | PDOC PROGRESS REPORT ---
Subjective Progress Note for:: 01/19/20 Subjective:: Having pain at the perianal region for several days now. No prior episodes. No prior surgeries in this area. Reason For Visit: PERIRECTAL ABSCESS Physical Exam Vital Signs: Temp Pulse Resp BP Pulse Ox 98.3 F 87 16 112/62 98 01/19/20 06:57 01/19/20 06:57 01/19/20 06:57 01/19/20 06:57 01/19/20 06:57 Intake & Output 01/18/20 01/19/20 01/20/20 06:59 06:59 06:59 Weight 96.7 kg General appearance: PRESENT: cooperative, mild distress Respiratory exam: PRESENT: clear to auscultation willian Cardiovascular exam: PRESENT: RRR Rectal exam: PRESENT: other - Focal perianal erythema with fluctuance and marked tenderness Results Laboratory Results: 01/18/20 23:30 01/18/20 23:30 01/18/20 01/18/20 23:30 23:30 WBC 12.5 H RBC 5.24 Hgb 15.9 Hct 45.9 MCV 88 MCH 30.3 MCHC 34.6 RDW 13.7 Plt Count 279 Seg Neutrophils % 74.3 Sodium 137.8 Potassium 3.5 L Chloride 99 Carbon Dioxide 28 Anion Gap 11 BUN 15 Creatinine 0.70 Est GFR ( Amer) > 60 Glucose 116 H Calcium 9.3 Assessment & Plan - Diagnosis (1) Perianal abscess Is this a current diagnosis for this admission?: Yes Plan: Plan incision and drainage. I have discussed with the patient the risk and benefits of the procedure including risk of fistula formation, recurrence, bleeding, infection. He understands that I may leave a drain in place as well. He understands the nature of the surgery and the risk and benefits and agrees to proceed.
[2020-01-19] MEDS ORDERED: ENOXAPARIN SODIUM INJ 40 MG/0.4 ML DISP.SYRIN SUBCUT SCH (10:00)
[2020-01-19] MEDS ORDERED: FAMOTIDINE INJ/PF 20 MG/2 ML SDV IV SCH (10:00)
[2020-01-19] MEDS: METRONIDAZOLE 500 MG/NS RTU 500 MG/100 ML RTUPB IV SCH ×2 (10:27→17:10)
[2020-01-19] MEDS ORDERED: FENTANYL CITRATE INJ/PF 250 MCG/5 ML AMPULE ONE (12:07)
[2020-01-19] MEDS ORDERED: MIDAZOLAM 2 MG/2 ML INJ ONE (12:07)
[2020-01-19] MEDS ORDERED: ONDANSETRON HCL INJ/PF 4 MG/2 ML SDV ONE ×2 (12:07→14:44)
[2020-01-19] MEDS ORDERED: DEXAMETHASONE SOD PHOSPHATE INJ 4 MG/1 ML VIAL ONE (12:07)
[2020-01-19] MEDS ORDERED: DEXMEDETOMIDINE INJ 80 MCG/20 ML VIAL IV ONE (12:08)
[2020-01-19] MEDS ORDERED: PROPOFOL INJ 200 MG/20 ML VIAL IV ONE (12:08)
[2020-01-19] MEDS ORDERED: BUPIVACAINE HCL 0.25 % INJ/PF (2.5 MG/1 ML) 30 ML VIAL ONE (12:44)
[2020-01-19] MEDS ORDERED: PROMETHAZINE HCL INJ 25 MG/1 ML VIAL IV PRN ×2 (13:10)
[2020-01-19] MEDS ORDERED: DIPHENHYDRAMINE HCL 50 MG/ML VIAL IV PRN (13:10)
[2020-01-19] MEDS ORDERED: FENTANYL CITRATE INJ/PF 100 MCG/2 ML AMPUL IV PRN ×3 (13:10)
--- NOTE | 2020-01-19 13:30 | Operative Report ---
Operative Report DATE OF SURGERY: 01/19/20 PREOPERATIVE DIAGNOSIS: Perianal abscess POSTOPERATIVE DIAGNOSIS: Perianal abscess OPERATION: Perianal abscess incision and drainage. Exam under anesthesia. ANESTHESIA: GA TISSUE REMOVED OR ALTERED: Pus sent for Gram stain and culture COMPLICATIONS: None ESTIMATED BLOOD LOSS: 10 cc INTRAOPERATIVE FINDINGS: Large abscess cavity in the left anterior perianal region. No fistulous opening seen in the anal canal. PROCEDURE: Informed consent was obtained. Patient was brought to the operating room. The procedure was done under general anesthesia. Patient was placed in a prone position. The perianal region was prepped and draped in usual sterile fashion. At the left anterior perianal region there was a large area of fluctuance. local anesthetic was administered. Incision was made over the region of maximal fluctuance entering a approximately 4 x 4 centimeter abscess cavity. It did not cross the midline. The pus was evacuated and swabbed for Gram stain and culture. The abscess cavity was then irrigated out. Using a Hill-Gamino retractor, anal canal was examined and I saw no fistulous openings. Hemostasis is was obtained with electrocautery at the incision edge. A Malecot drain was placed into the abscess cavity and it was sutured in place using a chromic suture. Patient tolerated procedure well with no apparent complications and was taken to the recovery area in stable condition.
[2020-01-19 21:07] VITALS: BP 130/72
[2020-01-19] MEDS ORDERED: LEVOFLOXACIN 500 MG/D5W RTU 500 MG/100 ML RTUPB IV SCH (22:00)
--- NOTE | 2020-01-19 22:02 | PDOC PROGRESS REPORT ---
Subjective Progress Note for:: 01/19/20 Subjective:: Perianal region feels much better. Patient does not want to wait till discharge paperwork is all done. He was frustrated that he did not receive his psychiatric medications on time today. He was instructed by nursing staff to take his own medication this evening which he did. Patient is signing out AMA but he did allow me to do an exam on him. I had been tied up in the operating room most of the afternoon and all evening. Reason For Visit: PERIRECTAL ABSCESS Physical Exam Vital Signs: Temp Pulse Resp BP Pulse Ox 98.3 F 99 16 130/72 H 99 01/19/20 19:12 01/19/20 19:12 01/19/20 19:12 01/19/20 19:12 01/19/20 19:12 Intake & Output 01/18/20 01/19/20 01/20/20 06:59 06:59 06:59 Intake Total 900 Output Total 665 Balance 235 Weight 96.7 kg General appearance: PRESENT: no acute distress, cooperative Rectal exam: PRESENT: other - Perianal region with a drain in place. No surrounding erythema. Fluctuance resolved. Minimal serous drainage at this time. Results Laboratory Results: 01/18/20 23:30 01/18/20 23:30 01/18/20 01/18/20 23:30 23:30 WBC 12.5 H RBC 5.24 Hgb 15.9 Hct 45.9 MCV 88 MCH 30.3 MCHC 34.6 RDW 13.7 Plt Count 279 Seg Neutrophils % 74.3 Sodium 137.8 Potassium 3.5 L Chloride 99 Carbon Dioxide 28 Anion Gap 11 BUN 15 Creatinine 0.70 Est GFR ( Amer) > 60 Glucose 116 H Calcium 9.3 Assessment & Plan - Diagnosis (1) Perianal abscess Is this a current diagnosis for this admission?: Yes Plan: Looks good after drainage. I was able to give him instructions on care. Mainly washing the area out in the shower or sitz bath after each bowel movement. Also to call for any problems such as fever or worsening pain. I have asked him to call [facility] on Thursday for a follow-up appointment next week for Malecot drain catheter removal.
--- NOTE | 2020-01-19 22:07 | PDOC DISCHARGE SUMMARY ---
General - Admit/Disc Date/PCP Admission Date/Primary Care Provider: 01/19/20 00:37 SUKUMAR SALINAS PA-C Discharge Date: 01/19/20 - Discharge Diagnosis Final Diagnosis: Perianal abscess - Assessment Summary: Patient was initially admitted for IV antibiotics that night and on the following day he underwent incision and drainage of his perianal abscess. He did well postoperatively with marked improvement of his pain. The site appeared good. Patient was frustrated that he did not receive his psychiatric medications on time. He signed out AMA and did not want to wait on discharge paperwork. He was however receptive to me giving him discharge instructions which were to call us for problems such as fever or increasing pain or any other problems. He is to wash the area out after each bowel movement in the shower. He is to call our office next week for a follow-up appointment for his Malecot drain removal. He does not not require any additional medications other than his regular home medications. - Additional Information Resuscitation Status: Full Code Discharge Diet: As Tolerated Discharge Activity: Activity As Tolerated - Stay active but avoid strenuous activity till follow-up. Referrals: SUKUMAR SALINAS PA-C [Primary Care Provider] - Follow up as needed Home Medications: Cyclobenzaprine HCl 5 mg PO BIDP PRN 01/19/20 Fluoxetine HCl [Prozac 20 mg Capsule] 20 mg PO QHS 01/19/20 Fluoxetine HCl [Prozac 20 mg Capsule] 40 mg PO QAM 01/19/20 Hydrochlorothiazide [Hydrodiuril 25 mg Tablet] 25 mg PO DAILY 01/19/20 Hydroxyzine Pamoate [Vistaril 50 mg Capsule] 50 mg PO QHS 01/19/20 Meloxicam [Mobic] 7.5 mg PO DAILY 01/19/20 Pregabalin [Lyrica 75 mg Capsule] 75 mg PO Q8 01/19/20 History of Present Illiness History of Present Illness: SUE STOKES is a 29 year old male Physical Exam Vital Signs: Temp Pulse Resp BP Pulse Ox 98.3 F 99 16 130/72 H 99 01/19/20 19:12 01/19/20 19:12 01/19/20 19:12 01/19/20 19:12 01/19/20 19:12 Intake & Output 02/19/20 02/20/20 02/21/20 06:59 06:59 06:59 Intake Total 900 Output Total 665 Balance 235 Weight 96.7 kg Results Laboratory Results: WBC 12.5 10^3/uL (4.0-10.5) H 01/18/20 23:30 RBC 5.24 10^6/uL (4.35-5.55) 01/18/20 23:30 Hgb 15.9 g/dL (13.5-17.0) 01/18/20 23:30 Hct 45.9 % (37.9-51.0) 01/18/20 23:30 MCV 88 fl (80-97) 01/18/20 23:30 MCH 30.3 pg (27.0-33.4) 01/18/20 23:30 MCHC 34.6 g/dL (32.0-36.0) 01/18/20 23:30 RDW 13.7 % (11.5-14.0) 01/18/20 23:30 Plt Count 279 10^3/uL (150-450) 01/18/20 23:30 Lymph % (Auto) 16.0 % (13-45) 01/18/20 23:30 [place] % (Auto) 8.7 % (3-13) 01/18/20 23:30 Eos % (Auto) 0.6 % (0-6) 01/18/20:30 Baso % (Auto) 0.4 % (0-2) 01/18/20 23:30 Absolute Neuts (auto) 9.3 10^3/uL (1.7-8.2) H 01/18/20 23:30 Absolute Lymphs (auto) 2.0 10^3/uL (0.5-4.7) 01/18/20 23:30 Absolute Monos (auto) 1.1 10^3/uL (0.1-1.4) 01/18/20 23:30 Absolute Eos (auto) 0.1 10^3/uL (0.0-0.6) 01/18/20 23:30 Absolute Basos (auto) 0.1 10^3/uL (0.0-0.2) 01/18/20 23:30 Seg Neutrophils % 74.3 % (42-78) 01/18/20 23:30 Sodium 137.8 mmol/L (137-145) 01/18/20 23:30 Potassium 3.5 mmol/L (3.6-5.0) L 01/18/20 23:30 Chloride 99 mmol/L (98-107) 01/18/20 23:30 Carbon Dioxide 28 mmol/L (22-30) 01/18/20 23:30 Anion Gap 11 (5-19) 01/18/20 23:30 BUN 15 mg/dL (7-20) 01/18/20 23:30 Creatinine 0.70 mg/dL (0.52-1.25) 01/18/20 23:30 Est GFR ( Amer) > 60 (>60) 01/18/20 23:30 Est GFR (MDRD) Non-Af > 60 (>60) 01/18/20 23:30 Glucose 116 mg/dL (75-110) H 01/18/20 23:30 Calcium 9.3 mg/dL (8.4-10.2) 01/18/20 23:30
== END 2020-01-19 21:50 | disposition left against medical advice (07) ==
LOC: ER 18:20 → EH 01-19 00:37 → 3S 01-19 02:45
PROVIDERS: ATTEND Surgery
DX: K61.0 Anal abscess (principal); F17.200 Nicotine dependence, unspecified, uncomplicated; F31.9 Bipolar disorder, unspecified; F90.9 Attention-deficit hyperactivity disorder, unspecified type; F41.9 Anxiety disorder, unspecified; I10 Essential (primary) hypertension; F43.10 Post-traumatic stress disorder, unspecified; Z79.899 Other long term (current) drug therapy; M19.90 Unspecified osteoarthritis, unspecified site; Z90.49 Acquired absence of other specified parts of digestive tract
CPT/HCPCS: 99283; 96374; 96375; 36415; 87070; 87205; 85025; 87075; 87077; 80048; 87186; 46050; J2250; J1956; J1100; J3010; J3490 ×3; J2270 ×2; J1170; J2405 ×2; J7121; J2704; S0028; G0378

== ENCOUNTER 2020-05-29 19:12 | Inpatient (IN) | payer MEDICAID ==
[2020-05-29] MEDS ORDERED: ACETAMINOPHEN 325 MG TABLET PO ONE (20:11)
[2020-05-29] MEDS ORDERED: VANCOMYCIN HCL INJ 1000 MG VIAL IV ONE (20:11)
[2020-05-29] MEDS ORDERED: NORMAL SALINE IV ONE (20:11)
[2020-05-29] MEDS ORDERED: ONDANSETRON 4 MG TAB.RAPDIS PO ONE (20:12)
--- NOTE | 2020-05-29 20:15 | ER Document Report ---
ED Medical Screen (RME) - General Stated Complaint: suspected cellulitis/swollen arm/vomiting/weakness Time Seen by Provider: 05/29/20 20:08 Primary Care Provider: SUKUMAR SALINAS PA-C [Primary Care Provider] - Follow up as needed Information source: Patient Notes: Patient presents with right elbow tenderness for the past 2 days. Patient states there has been painful for several days but the redness and pain started to worsen over 2 days. Patient reports nausea vomiting for the past 2 days. Patient denies any history of MRSA or any history of IV drug abuse. Patient unable to fully extend the right arm. Significant swelling and redness about the right elbow with a pustular lesion noted. I have greeted and performed a rapid initial assessment of this patient. A comprehensive ED assessment and evaluation of the patient, analysis of test results and completion of the medical decision making process will be conducted by additional ED providers. TRAVEL OUTSIDE OF THE [place] IN LAST 30 DAYS: No - Related Data Allergies/Adverse Reactions: Penicillins Allergy (Verified 05/29/20 20:08) tramadol [Tramadol] Allergy (Verified 05/29/20 20:08) Past Medical History - Past Medical History Cardiac Medical History: Reports: Hx Hypertension Neurological Medical History: Reports: Hx Seizures Renal/ Medical History: Denies: Hx Peritoneal Dialysis Musculoskeltal Medical History: Reports Hx Arthritis, Reports Hx Musculoskeletal Deformity, Reports Hx Musculoskeletal Trauma Psychiatric Medical History: Reports: Hx Anxiety, Hx Attention Deficit Hyperactivity Disorder, Hx Bipolar Disorder, Hx Borderline Personality Disorder, Hx Depression, Hx Post Traumatic Stress Disorder, Hx Schizophrenia - paranoid schezophrenia Traumatic Medical History: Reports: Hx Fractures - Knee Past Surgical History: Reports: Hx Adenoidectomy, Hx Cholecystectomy, Hx Myringotomy, Hx Orthopedic Surgery - rt knee, Hx Tonsillectomy - Immunizations Immunizations up to date: Yes Hx Diphtheria, Pertussis, Tetanus Vaccination: Yes Physical Exam - Vital signs Vitals: Temp Pulse Resp BP Pulse Ox 101.9 F H 99 18 124/69 100 05/29/20 19:20 05/29/20 19:20 05/29/20 19:20 05/29/20 19:20 05/29/20 19:20 - General Notes: Swelling to the right elbow with erythema, patient unable to fully extend the right arm Course - Vital Signs Vital signs: Temp Pulse Resp BP Pulse Ox 101.9 F H 99 18 124/69 100 05/29/20 19:20 05/29/20 19:20 05/29/20 19:20 05/29/20 19:20 05/29/20 19:20 Doctor's Discharge - Discharge Referrals: SUKUMAR SALINAS PA-C [Primary Care Provider] - Follow up as needed
--- NOTE | 2020-05-29 20:43 | RADIOLOGY REPORT (SQ) ---
CLINICAL INDICATION: infection, swollen elbow. . TECHNIQUE: 4 view(s) were obtained of the right elbow. COMPARISON: None. FINDINGS: No acute displaced fracture is identified of the elbow. Alignment appears anatomic. Joint spaces are within normal limits for age. No significant joint effusion. Significant soft tissue swelling. No retained radiopaque foreign body. IMPRESSION: No evidence of acute displaced fracture of the elbow.
[2020-05-29 21:51] LABS: HEMATOCRIT 40.9 % (37.9-51.0); HEMOGLOBIN 14.2 g/dL (13.5-17.0); MEAN CORPUSCULAR HEMOGLOBIN 31.5 pg (27.0-33.4); MEAN CORPUSCULAR HGB CONC 34.6 g/dL (32.0-36.0); MEAN CORPUSCULAR VOLUME 91 fl (80-97); PLATELET COUNT 271 10^3/uL (150-450); RED BLOOD COUNT 4.49 10^6/uL (4.35-5.55); RED CELL DISTRIBUTION WIDTH 15.2 % (11.5-14.0); VENOUS BLOOD BASE EXCESS -1.4 mmol/L; VENOUS BLOOD HCO3 20.5 mmol/L (20-32); VENOUS BLOOD PCO2 27.8 mmHg (35-63); VENOUS BLOOD PH 7.49 (7.30-7.42); WHITE BLOOD COUNT 29.3 10^3/uL (4.0-10.5)
[2020-05-29 22:01] LABS: ALKALINE PHOSPHATASE 83 U/L (38-126); ANION GAP 9 (5-19); ASPARTATE AMINO TRANSFERASE 24 U/L (17-59); BILIRUBIN,DIRECT 0.1 mg/dL (0.0-0.4); BILIRUBIN,TOTAL 0.8 mg/dL (0.2-1.3); BLOOD UREA NITROGEN 9 mg/dL (7-20); CALCIUM 9.2 mg/dL (8.4-10.2); CARBON DIOXIDE 22 mmol/L (22-30); CHLORIDE 101 mmol/L (98-107); GLUCOSE 112 mg/dL (75-110); POTASSIUM 3.6 mmol/L (3.6-5.0); TOTAL PROTEIN 7.2 g/dL (6.3-8.2)
[2020-05-29 22:07] LABS: ABSOLUTE LYMPHOCYTES# (MANUAL) 1.2 10^3/uL (0.5-4.7); ABSOLUTE MONOCYTES # (MANUAL) 1.2 10^3/uL (0.1-1.4); BAND NEUTROPHILS % (MANUAL) 4 % (3-5); BASOPHILS % (MANUAL) 0 % (0-2); EOSINOPHILS % (MANUAL) 0 % (0-6); LYMPHOCYTES % (MANUAL) 4 % (13-45); MONOCYTES % (MANUAL) 4 % (3-13); SEGMENTED NEUTROPHILS % (MAN) 88 % (42-78); TOTAL CELLS COUNTED 100
[2020-05-29 22:09] LABS: ANISOCYTOSIS SLIGHT; OVALOCYTES SLIGHT; PLATELET COMMENT ADEQUATE; POIKILOCYTOSIS SLIGHT; TOXIC VACUOLATION PRESENT
[2020-05-29 22:10] LABS: PROTHROMBIN TIME 14.3 SEC (11.4-15.4)
--- NOTE | 2020-05-29 22:59 | ER Document Report ---
ED General - General Chief Complaint: Elbow Injury Stated Complaint: suspected cellulitis/swollen arm/vomiting/weakness Time Seen by Provider: 05/29/20 20:08 Primary Care Provider: SUKUMAR SALINAS PA-C [Primary Care Provider] - Follow up as needed Mode of Arrival: Ambulatory Information source: Patient Notes: 05/29/20 20:10 - ED Nursing Note by PRAMOD KEITH Num: [id number] : 1990 Patient Age: [age] Y/O MALE PRESENTS WITH RT ELBOW SWELLING AND REDNESS, ONSET 2 DAYS AGO. PT DENIES ANY TRAUMA. PT REPORTS PAIN 5/5. PT APPEARS UNCOMFORTABLE IN TRIAGE. PROVIDER IN ROOM TO ASSESS. Saloni VALENCIA Patient presents with right elbow tenderness for the past 2 days. Patient states there has been painful for several days but the redness and pain started to worsen over 2 days. Patient reports nausea vomiting for the past 2 days. Patient denies any history of MRSA or any history of IV drug abuse. Patient unable to fully extend the right arm. Significant swelling and redness about the right elbow with a pustular lesion noted. my notes 29-year-old male who is right-handed arrives with chief complaint of 2-day history of swollen and painful right elbow along the extensor area. The right elbow is twice the diameter of the left elbow. Patient reports he has no history of any MRSA but does have a history of being a strep carrier all his life. He is status post tonsillectomy many years ago. Patient has been on disability for the last few years because of his low back pain and DJD. He reports he usually sits at home and places his right elbow with his fist on his chin all day. He denies any prior history of cellulitis. He denies any trauma. He does admit to having fever and chills but denies any cough or cold symptoms. He denies any sensation problems to his wrist or fingers of his right hand. He denies any trauma to his right elbow. X-ray of right elbow today are positive for STS. He also has a 29,000 WBC TRAVEL OUTSIDE OF THE [place] IN LAST 30 DAYS: No - HPI Onset: Other - For 2 days Onset/Duration: Sudden Quality of pain: Achy Severity: Severe Pain Level: 4 Associated symptoms: Fever, Headache, Sweating, Weakness Exacerbated by: Movement Relieved by: Denies Similar symptoms previously: No Recently seen / treated by doctor: No - Related Data Allergies/Adverse Reactions: Penicillins Allergy (Verified 05/29/20 20:08) tramadol [Tramadol] Allergy (Verified 05/29/20 20:08) Home Medications: VICODIN Past Medical History - General Information source: Patient - Social History Smoking Status: Current Every Day Smoker Cigarette use (# per day): Yes Chew tobacco use (# tins/day): No Smoking Education Provided: Yes Frequency of alcohol use: Social Drug Abuse: Marijuana Lives with: Family Family History: Reviewed & Not Pertinent, Arthritis, CAD, DM, Hyperlipidemia, Hypertension, Malignancy, Thyroid Disfunction Patient has suicidal ideation: No Patient has homicidal ideation: No - Past Medical History Cardiac Medical History: Reports: Hx Hypertension Neurological Medical History: Reports: Hx Seizures Renal/ Medical History: Denies: Hx Peritoneal Dialysis Musculoskeletal Medical History: Reports Hx Arthritis, Reports Hx Musculoskeletal Deformity, Reports Hx Musculoskeletal Trauma Psychiatric Medical History: Reports: Hx Anxiety, Hx Attention Deficit Hyperactivity Disorder, Hx Bipolar Disorder, Hx Borderline Personality Disorder, Hx Depression, Hx Post Traumatic Stress Disorder, Hx Schizophrenia - paranoid schezophrenia Traumatic Medical History: Reports: Hx Fractures - Knee Past Surgical History: Reports: Hx Adenoidectomy, Hx Cholecystectomy, Hx Myringotomy, Hx Orthopedic Surgery - rt knee, Hx Tonsillectomy - Immunizations Immunizations up to date: Yes Hx Diphtheria, Pertussis, Tetanus Vaccination: Yes Review of Systems - Review of Systems Constitutional: See HPI, Fever, Weakness EENT: No symptoms reported Cardiovascular: No symptoms reported Respiratory: No symptoms reported Gastrointestinal: No symptoms reported Genitourinary: No symptoms reported Male Genitourinary: No symptoms reported Musculoskeletal: See HPI, Joint pain, Joint swelling, Muscle pain, Muscle stiffness Skin: See HPI, Rash Hematologic/Lymphatic: No symptoms reported Neurological/Psychological: No symptoms reported Physical Exam - Vital signs Vitals: Temp Pulse Resp BP Pulse Ox 101.9 F H 99 18 124/69 100 05/29/20 19:20 05/29/20 19:20 05/29/20 19:20 05/29/20 19:20 05/29/20 19:20 Interpretation: Febrile - General General appearance: Alert - HEENT Head: Normocephalic, Atraumatic Eyes: Normal Pupils: PERRL Mouth/Lips: Normal Mucous membranes: Normal Pharynx: Normal Neck: Normal - Respiratory Respiratory status: No respiratory distress Chest status: Nontender Breath sounds: Normal Chest palpation: Normal - Cardiovascular Rhythm: Regular Heart sounds: Normal auscultation Murmur: No - Abdominal Inspection: Normal Distension: No distension Bowel sounds: Normal Tenderness: Nontender Organomegaly: No organomegaly - Rectal Hemorrhoids: Other - deferred - Genitourinary Scrotum: Other - deferred - Back Back: Normal - Extremities General upper extremity: Tender, Edema - Cellulitis of right elbow approximately 15 cm diameter with edema and tenderness on palpation and range of motion General lower extremity: Normal inspection - Neurological Neuro grossly intact: Yes Cognition: Normal Orientation: AAOx4 Sydnie Coma Scale Eye Opening: Spontaneous [place] Coma Scale Verbal: Oriented Sydnie Coma Scale Motor: Obeys Commands [place] Coma Scale Total: 15 Speech: Normal Motor strength normal: LUE, RUE, LLE, RLE Sensory: Normal - Psychological Associated symptoms: Anxious - Skin Skin Temperature: Warm Location of irregularity: Extremities - Skin a right extensor elbow with cellulitis and edema Course - Vital Signs Vital signs: Temp Pulse Resp BP Pulse Ox 98.6 F 91 18 120/66 99 05/29/20 22:38 05/29/20 22:38 05/29/20 22:38 05/29/20 22:38 05/29/20 22:38 - Laboratory Result Diagrams: 05/29/20 21:27 05/29/20 21:27 Laboratory results interpreted by me: 05/29/20 05/29/20 05/29/20 21:24 21:27 21:27 WBC 29.3 H RDW 15.2 H Seg Neuts % (Manual) 88 H Lymphocytes % (Manual) 4 L Abs Neuts (Manual) 27.0 H VBG pH VBG pCO2 Sodium 132.1 L Glucose 112 H POC Glucose 115 H Lipase 22.8 L 05/29/20 21:27 WBC RDW Seg Neuts % (Manual) Lymphocytes % (Manual) Abs Neuts (Manual) VBG pH 7.49 H VBG pCO2 27.8 L Sodium Glucose POC Glucose Lipase - Diagnostic Test Radiology reviewed: Reports reviewed Critical Care Note - Critical Care Note Total time excluding time spent on procedures (mins): 90 Comments: I discussed this case with at 2320 and he advised admission Discharge - Discharge Clinical Impression: Cellulitis of right elbow, Sepsis Condition: Fair Disposition: ADMITTED INPATIENT Referrals: SUKUMAR SALINAS PA-C [Primary Care Provider] - Follow up as needed
[2020-05-29] MEDS ORDERED: FENTANYL CITRATE INJ/PF 100 MCG/2 ML AMPUL IV ONE (23:22)
[2020-05-29] MEDS ORDERED: PROMETHAZINE HCL INJ 25 MG/1 ML VIAL IV ONE (23:23)
[2020-05-29] MEDS: LEVOFLOXACIN 750 MG/D5W RTU 750 MG/150 ML RTUPB IV ONE (23:57)
[2020-05-30] MEDS ORDERED: ACETAMINOPHEN 325 MG TABLET PO ONE (00:15)
[2020-05-30] MEDS ORDERED: VANCOMYCIN HCL INJ 1000 MG VIAL IV ONE (00:15)
[2020-05-30] MEDS ORDERED: ONDANSETRON 4 MG TAB.RAPDIS PO ONE (00:15)
[2020-05-30] MEDS ORDERED: PROMETHAZINE HCL INJ 25 MG/1 ML VIAL IV PRN (00:16)
[2020-05-30] MEDS ORDERED: IPRATROPIUM/ALBUTEROL 0.5-2.5 MG/3 ML AMPUL NEB PRN (00:16)
[2020-05-30] MEDS ORDERED: ONDANSETRON HCL INJ/PF 4 MG/2 ML SDV IV PRN (00:16)
[2020-05-30] MEDS ORDERED: MAGNESIUM HYDROXIDE SUSP 30 ML UDCUP PO PRN (00:16)
[2020-05-30] MEDS: LEVOFLOXACIN 750 MG/D5W RTU 750 MG/150 ML RTUPB IV ONE (00:18)
[2020-05-30] MEDS ORDERED: CYCLOBENZAPRINE HCL 10 MG TABLET PO PRN (00:21)
--- NOTE | 2020-05-30 00:40 | PDOC H&P ---
History of Present Illness Admission Date/PCP: SUKUMAR SALINAS PA-C History of Present Illness: SUE STOKES is a 29 year old male past medical history of seizure disorder, arthritis, anxiety, bipolar disorder, PTSD, who is disabled due to his DJD and chronic back problems, presenting to ED complaining of right elbow swelling and tenderness. Right elbow pain started several days ago however it has been getting worse for the last 2 days. Yesterday morning when he woke up he noted that his right elbow was swollen, red, was unable to extend his left elbow. He describes his pain asconstant, aching, nonradiating, 7/10 on severity scale, associated with fever, chills, nausea and nonbilious and nonbloody vomiting. Denies any trauma, IV drug abuse, any other joint pain or swelling, any animal or insect bite, genital or oral lesions, any vision changes, any associated abdominal pain, or diarrhea, shortness of breath, chest pain. In ED was noted to have leukocytosis, fever. Right upper extremity x-ray did not show any acute abnormalities. Hospitalist consulted for admission. Past Medical History Cardiac Medical History: Reports: Hypertension Neurological Medical History: Reports: Seizures Musculoskeltal Medical History: Reports: Arthritis Psychiatric Medical History: Reports: Attention Deficit Hyperactivity Disorder, Bipolar Disorder, Depression, Post Traumatic Stress Disorder Past Surgical History Past Surgical History: Reports: Cholecystectomy, Orthopedic Surgery - rt knee, Tonsillectomy Social History Lives with: Family Smoking Status: Current Every Day Smoker Family History Family History: Reviewed & Not Pertinent, Arthritis, CAD, DM, Hyperlipidemia, Hypertension, Malignancy, Thyroid Disfunction Parental Family History Reviewed: Yes Children Family History Reviewed: Yes Sibling(s) Family History Reviewed.: Yes Medication/Allergy Home Medications: Cyclobenzaprine HCl 5 mg PO BIDP PRN 01/19/20 Fluoxetine HCl [Prozac 20 mg Capsule] 20 mg PO QHS 01/19/20 Fluoxetine HCl [Prozac 20 mg Capsule] 40 mg PO QAM 01/19/20 Hydrochlorothiazide [Hydrodiuril 25 mg Tablet] 25 mg PO DAILY 01/19/20 Hydroxyzine Pamoate [Vistaril 50 mg Capsule] 50 mg PO QHS 01/19/20 Meloxicam [Mobic] 7.5 mg PO DAILY 01/19/20 Pregabalin [Lyrica 75 mg Capsule] 75 mg PO Q8 01/19/20 Allergies/Adverse Reactions: Penicillins Allergy (Verified 05/29/20 20:08) tramadol [Tramadol] Allergy (Verified 05/29/20 20:08) Physical Exam Vital Signs: Temp Pulse Resp BP Pulse Ox 101.6 F H 91 18 120/66 99 05/30/20 00:21 05/29/20 22:38 05/29/20 22:38 05/29/20 22:38 05/29/20 22:38 Intake & Output 05/28/20 05/29/20 05/30/20 06:59 06:59 06:59 Weight 101.8 kg General appearance: PRESENT: no acute distress, well-developed, well-nourished Head exam: PRESENT: atraumatic, normocephalic Respiratory exam: PRESENT: clear to auscultation willian. ABSENT: rales, rhonchi, wheezes Cardiovascular exam: PRESENT: RRR. ABSENT: diastolic murmur, rubs, systolic murmur GI/Abdominal exam: PRESENT: normal bowel sounds, soft. ABSENT: distended, guarding, mass, organolmegaly, rebound, tenderness Extremities exam: PRESENT: full ROM, joint swelling - Right elbow extensor aspect swelling, erythema, there is a small pustule 2 x 2 mm at the posterior aspect of the elbow. Neurovascularly intact., tenderness, other. ABSENT: calf tenderness, clubbing, pedal edema Neurological exam: PRESENT: alert, awake, oriented to person, oriented to place, oriented to time, oriented to situation, CN II-XII grossly intact. ABSENT: motor sensory deficit Skin exam: PRESENT: dry, intact, warm. ABSENT: cyanosis, rash Results Laboratory Results: 05/29/20 21:27 05/29/20 21:27 05/29/20 05/29/20 05/29/20 21:27 21:27 21:27 WBC 29.3 H RBC 4.49 Hgb 14.2 Hct 40.9 MCV 91 MCH 31.5 MCHC 34.6 RDW 15.2 H Plt Count 271 Seg Neutrophils % Not Reportable VBG pH 7.49 H VBG pCO2 27.8 L VBG HCO3 20.5 VBG Base Excess -1.4 Sodium 132.1 L Potassium 3.6 Chloride 101 Carbon Dioxide 22 Anion Gap 9 BUN 9 Creatinine 0.54 Est GFR ( Amer) > 60 Glucose 112 H Lactic Acid Calcium 9.2 Total Bilirubin 0.8 AST 24 Alkaline Phosphatase 83 Total Protein 7.2 Albumin 4.0 Lipase 22.8 L 05/29/20 21:27 WBC RBC Hgb Hct MCV MCH MCHC RDW Plt Count Seg Neutrophils % VBG pH VBG pCO2 VBG HCO3 VBG Base Excess Sodium Potassium Chloride Carbon Dioxide Anion Gap BUN Creatinine Est GFR ( Amer) Glucose Lactic Acid 1.0 Calcium Total Bilirubin AST Alkaline Phosphatase Total Protein Albumin Lipase Impressions: Elbow X-Ray 05/29/20 20:12 IMPRESSION: No evidence of acute displaced fracture of the elbow. Assessment and Plan - Diagnosis (1) Cellulitis of right elbow Is this a current diagnosis for this admission?: Yes Plan: Denies any IV drug abuse. Denies any trauma, insect or animal bites. Right elbow posterior aspect erythema and swelling. Right upper extremity are neurovascularly intact. Right upper extremity x-ray negative for any gas pockets. Empiric IV antibiotics, ESR, CRP, blood culture and wound care. Given presentation will get MRI of right upper extremity to rule out myositis or abscess. Will consult surgery based on MRI finding. (2) Hypertension Qualifiers: Hypertension type: essential hypertension Qualified Code(s): I10 - Essential (primary) hypertension Is this a current diagnosis for this admission?: Yes Plan: Euvolemic. Normotensive. Takes hydrochlorothiazide at home. Resume home meds. Adjust meds as needed. PRN hydralazine. (3) History of degenerative joint disease Is this a current diagnosis for this admission?: Yes Plan: History of extensive DJD. Resume home meds. Outpatient PCP follow-up. (4) Depression Is this a current diagnosis for this admission?: Yes Plan: Denies any suicidal homicidal ideation. Takes Prozac at home. Resume home meds. Adjust meds as needed. Outpatient PCP and psychiatry follow- up. (5) Leukocytosis Is this a current diagnosis for this admission?: Yes Plan: Likely due to underlying cellulitis. Denies any history of IV drug abuse. No signs or symptoms of endocarditis. Empiric IV antibiotics. Follow-up blood culture. 2D echo based on blood culture results or if there is suspicion for endocarditis. (6) Tobacco abuse Is this a current diagnosis for this admission?: Yes Plan: Counseled on quitting. Nicotine patch will be provided.
[2020-05-30] MEDS ORDERED: NICOTINE 14 MG/24 HR PATCH.TD24 TD PRN (00:54)
[2020-05-30] MEDS ORDERED: MORPHINE SULFATE 10 MG/ML INJ IV PRN (00:55)
[2020-05-30] MEDS: CLINDAMYCIN 900 MG/D5W RTU 900 MG/50 ML RTUPB IV SCH ×3 (01:03→17:18)
--- NOTE | 2020-05-30 02:26 | EKG REPORT ---
SEVERITY:- NORMAL ECG - SINUS RHYTHM : Confirmed by: Shireen Hogan MD 30-May-2020 02:26:23
[2020-05-30] MEDS ORDERED: CLINDAMYCIN 900 MG/D5W RTU 900 MG/50 ML RTUPB IV SCH (06:00)
[2020-05-30 06:39] LABS: HEMATOCRIT 42.6 % (37.9-51.0); HEMOGLOBIN 14.6 g/dL (13.5-17.0); MEAN CORPUSCULAR HEMOGLOBIN 31.4 pg (27.0-33.4); MEAN CORPUSCULAR HGB CONC 34.4 g/dL (32.0-36.0); MEAN CORPUSCULAR VOLUME 92 fl (80-97); RED BLOOD COUNT 4.66 10^6/uL (4.35-5.55); RED CELL DISTRIBUTION WIDTH 15.1 % (11.5-14.0); WHITE BLOOD COUNT 27.1 10^3/uL (4.0-10.5)
[2020-05-30 07:17] LABS: ABSOLUTE LYMPHOCYTES# (MANUAL) 3.5 10^3/uL (0.5-4.7); ABSOLUTE MONOCYTES # (MANUAL) 1.1 10^3/uL (0.1-1.4); BAND NEUTROPHILS % (MANUAL) 7 % (3-5); BASOPHILS % (MANUAL) 0 % (0-2); EOSINOPHILS % (MANUAL) 0 % (0-6); LYMPHOCYTES % (MANUAL) 13 % (13-45); MONOCYTES % (MANUAL) 4 % (3-13); SEGMENTED NEUTROPHILS % (MAN) 76 % (42-78); TOTAL CELLS COUNTED 100
[2020-05-30 07:18] LABS: TOXIC GRANULATION SLIGHT; TOXIC VACUOLATION PRESENT
[2020-05-30 07:19] LABS: PLATELET CLUMPS PRESENT; PLATELET COMMENT ADEQUATE
[2020-05-30 07:20] LABS: ANISOCYTOSIS SLIGHT; PLATELET COUNT 244 10^3/uL (150-450)
[2020-05-30 07:21] LABS: POIKILOCYTOSIS SLIGHT
[2020-05-30] MEDS: ACETAMINOPHEN 325 MG TABLET PO PRN ×3 (08:19→18:56)
[2020-05-30] MEDS: FLUOXETINE HCL 20 MG CAPSULE PO SCH ×2 (08:19→21:24)
[2020-05-30] MEDS: NORMAL SALINE 1000 ML 1,000 ML IV PRN ×2 (08:39→21:26)
[2020-05-30] MEDS: PREGABALIN 75 MG CAPSULE PO SCH ×3 (11:14→18:56)
[2020-05-30] MEDS: FAMOTIDINE 20 MG TABLET PO SCH ×2 (11:14→21:24)
[2020-05-30] MEDS: ENOXAPARIN SODIUM INJ 40 MG/0.4 ML DISP.SYRIN SUBCUT SCH (11:14)
--- NOTE | 2020-05-30 11:17 | RADIOLOGY REPORT (SQ) ---
EXAM DESCRIPTION: MRI RT UPPER EXTREMITY COMBO IMAGES COMPLETED DATE/TIME: 05/30/2020 11:00 am REASON FOR STUDY: r/o myositis, abscess COMPARISON: Recent radiographs. TECHNIQUE: Multiplanar imaging of the right elbow to include T1-weighted, postcontrast T1-weighted, and T2-weighted images. CONTRAST TYPE AND DOSE: 20 mL Prohance. RENAL FUNCTION: Not indicated. ACR Type II contrast agent associated with few, if any, unconfounded cases of NSF LIMITATIONS: None. FINDINGS: BONE MARROW: No marrow signal alteration. Specifically no marrow replacement or marrow ed jon. No evidence for osteomyelitis. No cortical break through. SOFT TISSUES: Generalized diffuse subcutaneous edema which looks most pronounced posteriorly along th e elbow and visualized proximal forearm. No discrete drainable fluid collections appreciated. No shook ggestion of significant intramuscular edema/myositis. No worrisome areas of enhancement. OTHER: No suggestion of significant joint effusion. No gross subluxation or dislocation in the elbow joints. Biceps and triceps tendons look normal. IMPRESSION: 1. No suggestion of osteomyelitis or abscess or gross myositis. 2. Extensive cellulitis. TECHNICAL DOCUMENTATION: JOB ID: [id number] 2010 [employer]- All Rights Reserved Reading location - IP/workstation name: [email or web address]
--- NOTE | 2020-05-30 15:04 | PDOC PROGRESS REPORT ---
Subjective Progress Note for:: 05/30/20 Subjective:: Patient is complaining of no appetite secondary to a headache. Still significant pain in his right arm. Still with marked swelling localized to the proximal forearm just proximal to the elbow. IV morphine provided some relief. Reason For Visit: RT ELBOW CELLULITIS Physical Exam Vital Signs: Temp Pulse Resp BP Pulse Ox 98.2 F 91 22 H 117/78 100 05/30/20 08:10 05/29/20 22:38 05/30/20 14:00 05/30/20 14:00 05/30/20 14:00 Intake & Output 05/29/20 05/30/20 05/31/20 06:59 06:59 06:59 Intake Total 3100 50 Balance 3100 50 Weight 101.8 kg General appearance: PRESENT: mild distress, other - Poor Appetite Head exam: PRESENT: atraumatic, normocephalic, other - Headache Respiratory exam: PRESENT: clear to auscultation willian, symmetrical, unlabored. ABSENT: rales, rhonchi, tachypnea, wheezes Cardiovascular exam: PRESENT: RRR, +S1, +S2. ABSENT: diastolic murmur, irregular rhythm, systolic murmur Pulses: PRESENT: other - 2+ right radial pulse GI/Abdominal exam: PRESENT: normal bowel sounds, soft. ABSENT: tenderness Extremities exam: PRESENT: other - Marked swelling in the proximal forearm. Confluently erythematous. Very tender to the touch. Decreased range of motion of the elbow due to the swelling and pain. Musculoskeletal exam: PRESENT: ambulatory. ABSENT: normal inspection - As above Neurological exam: PRESENT: alert, awake, oriented to person, oriented to place, oriented to time, oriented to situation, CN II-XII grossly intact Psychiatric exam: PRESENT: appropriate affect. ABSENT: agitated, anxious Focused psych exam: ABSENT: delusional, paranoid, restlessness Skin exam: PRESENT: erythema Results Laboratory Results: 05/30/20 06:10 05/29/20 21:27 05/29/20 05/29/20 05/29/20 21:27 21:27 21:27 WBC 29.3 H RBC 4.49 Hgb 14.2 Hct 40.9 MCV 91 MCH 31.5 MCHC 34.6 RDW 15.2 H Plt Count 271 Seg Neutrophils % Not Reportable VBG pH 7.49 H VBG pCO2 27.8 L VBG HCO3 20.5 VBG Base Excess -1.4 Sodium 132.1 L Potassium 3.6 Chloride 101 Carbon Dioxide 22 Anion Gap 9 BUN 9 Creatinine 0.54 Est GFR ( Amer) > 60 Glucose 112 H Lactic Acid Calcium 9.2 Total Bilirubin 0.8 AST 24 Alkaline Phosphatase 83 C-Reactive Protein Total Protein 7.2 Albumin 4.0 Lipase 22.8 L 05/29/20 05/29/20 05/30/20 21:27 21:27 00:15 WBC RBC Hgb Hct MCV MCH MCHC RDW Plt Count Seg Neutrophils % VBG pH VBG pCO2 VBG HCO3 VBG Base Excess Sodium Potassium Chloride Carbon Dioxide Anion Gap BUN Creatinine Est GFR ( Amer) Glucose Lactic Acid 1.0 1.1 Calcium Total Bilirubin AST Alkaline Phosphatase C-Reactive Protein 264.8 H Total Protein Albumin Lipase 05/30/20 05/30/20 06:10 06:10 WBC 27.1 H RBC 4.66 Hgb 14.6 Hct 42.6 MCV 92 MCH 31.4 MCHC 34.4 RDW 15.1 H Plt Count 244 Seg Neutrophils % Not Reportable VBG pH VBG pCO2 VBG HCO3 VBG Base Excess Sodium Potassium Chloride Carbon Dioxide Anion Gap BUN Creatinine Est GFR ( Amer) Glucose Lactic Acid 1.4 Calcium Total Bilirubin AST Alkaline Phosphatase C-Reactive Protein Total Protein Albumin Lipase Impressions: Elbow X-Ray 05/29/20 20:12 IMPRESSION: No evidence of acute displaced fracture of the elbow. Upper Extremity MRI 05/30/20 08:00 IMPRESSION: 1. No suggestion of osteomyelitis or abscess or gross myositis. 2. Extensive cellulitis. Assessment and Plan - Diagnosis (1) Cellulitis of right elbow Is this a current diagnosis for this admission?: Yes Plan: Denies any IV drug abuse. Denies any trauma, insect or animal bites. Right elbow posterior aspect erythema and swelling. Right upper extremity are neurovascularly intact. Right upper extremity x-ray negative for any gas pockets. Empiric IV antibiotics, ESR, CRP, blood culture and wound care. Given presentation will get MRI of right upper extremity to rule out myositis or abscess. Will consult surgery based on MRI finding. 05/30/2020 Continue clindamycin. Monitor blood work including white blood cell count and inflammatory markers such as sed rate and CRP. Blood cultures are pending. MRI reveals cellulitis. No joint space infection or abscess. (2) Hypertension Qualifiers: Hypertension type: essential hypertension Qualified Code(s): I10 - Essential (primary) hypertension Is this a current diagnosis for this admission?: Yes Plan: Euvolemic. Normotensive. Takes hydrochlorothiazide at home. Resume home meds. Adjust meds as needed. PRN hydralazine. 05/30/2020 Continue home meds and monitor BP (3) Depression Qualifiers: Depression Type: unspecified Qualified Code(s): F32.9 - Major depressive disorder, single episode, unspecified Is this a current diagnosis for this admission?: Yes Plan: Denies any suicidal homicidal ideation. Takes Prozac at home. Resume home meds. Adjust meds as needed. Outpatient PCP and psychiatry follow- up. 05/30/2020 Continue current SSRI therapy (4) Leukocytosis Qualifiers: Leukocytosis type: unspecified Qualified Code(s): D72.829 - Elevated white blood cell count, unspecified Is this a current diagnosis for this admission?: Yes Plan: Likely due to underlying cellulitis. Denies any history of IV drug abuse. No signs or symptoms of endocarditis. Empiric IV antibiotics. Follow-up blood culture. 2D echo based on blood culture results or if there is suspicion for en docarditis. 05/30/2020 With antibiotics white cell count has come down from 24,000-22,000. Anticipate a more significant improvement tomorrow. Continue antibiotic therapy. (5) Tobacco dependence due to cigarettes Is this a current diagnosis for this admission?: Yes Plan: 05/30/2020 Nicotine patch (6) History of degenerative joint disease Is this a current diagnosis for this admission?: Yes (7) Headache Qualifiers: Headache type: unspecified Headache chronicity pattern: acute headache Intractability: not intractable Qualified Code(s): R51 - Headache Is this a current diagnosis for this admission?: Yes Plan: 05/30/2020 Nonspecific headache. The patient does not have a good appetite and so could be related to poor p.o. intake. He is on IV fluids. We will continue to provide as needed analgesia. - Time Time Spent with patient: 15-24 minutes Medications reviewed and adjusted accordingly: Yes Anticipated discharge: Home - Inpatient Certification Based on my medical assessment, after consideration of the patient's comorbidities, presenting symptoms, or acuity I expect that the services needed warrant INPATIENT care.: Yes I certify that my determination is in accordance with my understanding of Medicare's requirements for reasonable and necessary INPATIENT services [42 CFR 412.3e].: Yes Medical Necessity: Need for Pain Control, Need for IV Antibiotics Post Hospital Care: D/C [employer] Representative Documentation
[2020-05-30] MEDS: PROPRANOLOL HCL 10 MG TABLET PO SCH (21:19)
[2020-05-30] MEDS: DIVALPROEX SODIUM 500 MG TAB.SR.24H PO SCH (21:24)
[2020-05-30] MEDS: HYDROXYZINE PAMOATE 50 MG CAPSULE PO SCH (21:24)
[2020-05-31] MEDS: ACETAMINOPHEN 325 MG TABLET PO PRN ×4 (01:58→23:30)
[2020-05-31] MEDS: CLINDAMYCIN 900 MG/D5W RTU 900 MG/50 ML RTUPB IV SCH ×2 (01:58→09:16)
[2020-05-31 05:32] LABS: HEMATOCRIT 41.1 % (37.9-51.0); MEAN CORPUSCULAR HEMOGLOBIN 31.4 pg (27.0-33.4); MEAN CORPUSCULAR HGB CONC 34.2 g/dL (32.0-36.0); MEAN CORPUSCULAR VOLUME 92 fl (80-97); PLATELET COUNT 242 10^3/uL (150-450); RED BLOOD COUNT 4.47 10^6/uL (4.35-5.55); RED CELL DISTRIBUTION WIDTH 15.1 % (11.5-14.0); WHITE BLOOD COUNT 25.9 10^3/uL (4.0-10.5)
[2020-05-31 05:51] LABS: ABSOLUTE LYMPHOCYTES# (MANUAL) 1.3 10^3/uL (0.5-4.7); BAND NEUTROPHILS % (MANUAL) 4 % (3-5); BASOPHILS % (MANUAL) 0 % (0-2); EOSINOPHILS % (MANUAL) 0 % (0-6); LYMPHOCYTES % (MANUAL) 5 % (13-45); MONOCYTES % (MANUAL) 0 % (3-13); SEGMENTED NEUTROPHILS % (MAN) 91 % (42-78); TOTAL CELLS COUNTED 100
[2020-05-31 05:52] LABS: ANISOCYTOSIS SLIGHT; PLATELET COMMENT ADEQUATE
[2020-05-31 05:58] LABS: ALBUMIN 3.5 g/dL (3.5-5.0); ALKALINE PHOSPHATASE 107 U/L (38-126); ANION GAP 11 (5-19); ASPARTATE AMINO TRANSFERASE 50 U/L (17-59); BILIRUBIN,DIRECT 0.4 mg/dL (0.0-0.4); BILIRUBIN,TOTAL 1.3 mg/dL (0.2-1.3); BLOOD UREA NITROGEN 7 mg/dL (7-20); CALCIUM 9.1 mg/dL (8.4-10.2); CARBON DIOXIDE 23 mmol/L (22-30); CHLORIDE 105 mmol/L (98-107); GLUCOSE 91 mg/dL (75-110); POTASSIUM 3.5 mmol/L (3.6-5.0); TOTAL PROTEIN 6.7 g/dL (6.3-8.2)
[2020-05-31] MEDS: PROPRANOLOL HCL 10 MG TABLET PO SCH ×2 (05:59→18:23)
[2020-05-31 06:36] LABS: C-REACTIVE PROTEIN 371.8 mg/L (<10.0)
[2020-05-31] MEDS: FLUOXETINE HCL 20 MG CAPSULE PO SCH ×2 (08:03→21:45)
[2020-05-31] MEDS: HYDROCHLOROTHIAZIDE 25 MG TABLET PO SCH (09:15)
[2020-05-31] MEDS: FAMOTIDINE 20 MG TABLET PO SCH ×2 (09:15→21:44)
[2020-05-31] MEDS: PREGABALIN 75 MG CAPSULE PO SCH ×3 (09:15→18:24)
[2020-05-31] MEDS: DIVALPROEX SODIUM 500 MG TAB.SR.24H PO SCH ×2 (09:15→21:44)
[2020-05-31] MEDS: ENOXAPARIN SODIUM INJ 40 MG/0.4 ML DISP.SYRIN SUBCUT SCH (09:16)
[2020-05-31] MEDS ORDERED: PIPERACILLIN/TAZOBACTAM 3.375 GM VIAL IV SCH (11:30)
[2020-05-31] MEDS: MORPHINE SULFATE 10 MG/ML INJ IV PRN ×2 (11:51→23:22)
[2020-05-31] MEDS: CIPROFLOXACIN 400 MG/D5W RTU 400 MG/200 ML RTUPB IV SCH ×2 (12:20→23:32)
--- NOTE | 2020-05-31 12:23 | PDOC PROGRESS REPORT ---
Subjective Progress Note for:: 05/31/20 Subjective:: 29 year old male past medical history of seizure disorder, arthritis, anxiety, bipolar disorder, PTSD, who is disabled due to his DJD and chronic back problems, presenting to ED complaining of right elbow swelling and tenderness. Right elbow pain started several days ago however it has been getting worse for the last 2 days. Yesterday morning when he woke up he noted that his right elbow was swollen, red, was unable to extend his left elbow. He describes his pain asconstant, aching, nonradiating, 7/10 on severity scale, associated with fever, chills, nausea and nonbilious and nonbloody vomiting. Denies any trauma, IV drug abuse, any other joint pain or swelling, any animal or insect bite, genital or oral lesions, any vision changes, any associated abdominal pain, or diarrhea, shortness of breath, chest pain. In ED was noted to have leukocytosis, fever. Right upper extremity x-ray did not show any acute abnormalities. Hospitalist consulted for admission. 05/30/2020 Patient is complaining of no appetite secondary to a headache. Still significant pain in his right arm. Still with marked swelling localized to the proximal forearm just proximal to the elbow. IV morphine provided some relief. 05/31/2020-patient is in extreme pain. As per the nurses char conveyor tender right arm swelling and redness worsening compared to yesterday. Patient is receiving IV morphine he still in extreme pain. Started on IV vancomycin and Zosyn, clindamycin discontinued. Surgical consult was requested to help in the management of the case. Reason For Visit: RT ELBOW CELLULITIS Physical Exam Vital Signs: Temp Pulse Resp BP Pulse Ox 98.9 F 83 17 124/58 L 100 05/31/20 09:12 05/31/20 08:00 05/31/20 08:00 05/31/20 08:00 05/31/20 08:00 Intake & Output 05/30/20 05/31/20 06/01/20 06:59 06:59 06:59 Intake Total 3100 2450 50 Balance 3100 2450 50 Weight 101.8 kg 101.8 kg General appearance: PRESENT: well-developed, other - Patient is in moderate distress. Head exam: PRESENT: atraumatic, normocephalic Eye exam: PRESENT: PERRLA Mouth exam: PRESENT: moist, tongue midline Neck exam: ABSENT: carotid bruit, JVD, lymphadenopathy, thyromegaly Respiratory exam: PRESENT: decreased breath sounds Cardiovascular exam: PRESENT: RRR. ABSENT: diastolic murmur, rubs, systolic murmur GI/Abdominal exam: PRESENT: normal bowel sounds, soft. ABSENT: distended, guarding, mass, organolmegaly, rebound, tenderness Rectal exam: PRESENT: deferred Extremities exam: PRESENT: full ROM. ABSENT: calf tenderness, clubbing, pedal edema Neurological exam: PRESENT: alert, awake, oriented to person, oriented to place, oriented to time, oriented to situation, CN II-XII grossly intact. ABSENT: motor sensory deficit Psychiatric exam: PRESENT: appropriate affect, normal mood. ABSENT: homicidal ideation, suicidal ideation Results Laboratory Results: 05/31/20 05:10 05/31/20 05:10 05/31/20 05/31/20 05:10 05:10 WBC 25.9 H RBC 4.47 Hgb 14.0 Hct 41.1 MCV 92 MCH 31.4 MCHC 34.2 RDW 15.1 H Plt Count 242 Seg Neutrophils % Not Reportable Sodium 139.0 Potassium 3.5 L Chloride 105 Carbon Dioxide 23 Anion Gap 11 BUN 7 Creatinine 0.57 Est GFR ( Amer) > 60 Glucose 91 Calcium 9.1 Magnesium 2.1 Total Bilirubin 1.3 AST 50 Alkaline Phosphatase 107 C-Reactive Protein 371.8 H Total Protein 6.7 Albumin 3.5 Impressions: Elbow X-Ray 05/29/20 20:12 IMPRESSION: No evidence of acute displaced fracture of the elbow. Upper Extremity MRI 05/30/20 08:00 IMPRESSION: 1. No suggestion of osteomyelitis or abscess or gross myositis. 2. Extensive cellulitis. Assessment and Plan - Diagnosis (1) Cellulitis of right elbow Is this a current diagnosis for this admission?: Yes Plan: Denies any IV drug abuse. Denies any trauma, insect or animal bites. Right elbow posterior aspect erythema and swelling. Right upper extremity are neurovascularly intact. Right upper extremity x-ray negative for any gas pockets. Empiric IV antibiotics, ESR, CRP, blood culture and wound care. Given presentation will get MRI of right upper extremity to rule out myositis or abscess. Will consult surgery based on MRI finding. 05/30/2020 Continue clindamycin. Monitor blood work including white blood cell count and inflammatory markers such as sed rate and CRP. Blood cultures are pending. MRI reveals cellulitis. No joint space infection or abscess. 05/31/2020-MRI of the right elbow with no abscess. Elbow x-ray was done no eff usions no septic arthritis seen. As per the nurses char conveyor tender the swelling and redness is worse compared to yesterday. Consultation with Dr. Roberts is requested. I spoke to Dr. Roberts myself. He is going to see the patient today. Started on IV vancomycin and Zosyn. Blood cultures are pending. Patient is requesting [place] and the order was placed. He is also receiving IV morphine at this time. (2) Hypertension Qualifiers: Hypertension type: essential hypertension Qualified Code(s): I10 - Essential (primary) hypertension Is this a current diagnosis for this admission?: No Plan: Euvolemic. Normotensive. Takes hydrochlorothiazide at home. Resume home meds. Adjust meds as needed. PRN hydralazine. 05/30/2020 Continue home meds and monitor BP 05/31/2020-patient blood pressure today's 124/60. Stable. On IV hydralazine as needed as needed basis. (3) History of degenerative joint disease Is this a current diagnosis for this admission?: No Plan: History of extensive DJD. Resume home meds. Outpatient PCP follow-up. (4) Leukocytosis Qualifiers: Leukocytosis type: unspecified Qualified Code(s): D72.829 - Elevated white blood cell count, unspecified Is this a current diagnosis for this admission?: Yes Plan: Likely due to underlying cellulitis. Denies any history of IV drug abuse. No signs or symptoms of endocarditis. Empiric IV antibiotics. Follow-up blood culture. 2D echo based on blood culture results or if there is suspicion for endocarditis. 05/30/2020 With antibiotics white cell count has come down from 24,000-22,000. Anticipate a more significant improvement tomorrow. Continue antibiotic therapy. 05/31/2020-WBC count is 25,900 today. Patient is on IV clindamycin antibiotics were changed to IV vancomycin and Zosyn. blood Cultures are pending. (5) Tobacco abuse Is this a current diagnosis for this admission?: Yes Plan: Counseled on quitting. Nicotine patch will be provided.
[2020-05-31] MEDS ORDERED: ONDANSETRON HCL INJ/PF 4 MG/2 ML SDV IV PRN (12:30)
[2020-05-31] MEDS ORDERED: PROMETHAZINE HCL INJ 25 MG/1 ML VIAL IV PRN (12:30)
[2020-05-31] MEDS: METRONIDAZOLE 500 MG/NS RTU 500 MG/100 ML RTUPB IV SCH ×2 (13:34→21:45)
--- NOTE | 2020-05-31 13:39 | PDOC CONSULTATION ---
Consultation Consult Date: 05/31/20 Provider Consulted: SURGICAL SURGICALIST MD Consult reason:: Right arm swelling/abscess History of Present Illness Admission Date/PCP: 05/30/20 00:29 SUKUMAR SALINAS PA-C History of Present Illness: SUE STOKES is a 29 year old male seen in consultation at the request of the hospitalist service. The patient has increasing swelling, erythema, and severe tenderness to palpation of the right upper extremity. He also has a fluctuant area at the elbow. The patient reports he has been "squeezing pus out" at home for the last several days. Currently there is no purulent drainage, but his pain, erythema, and swelling are worsening. Patient denies paresthesias or weakness. He denies chest pain, shortness of breath, headache, dizziness, orthostasis, blurry vision, headache, nausea, vomiting. Palpation and movement make it worse. Pain medications make it slightly better. Past Medical History Cardiac Medical History: Reports: Hypertension Neurological Medical History: Reports: Seizures Musculoskeltal Medical History: Reports: Arthritis Psychiatric Medical History: Reports: Attention Deficit Hyperactivity Disorder, Bipolar Disorder, Depression, Post Traumatic Stress Disorder Past Surgical History Past Surgical History: Reports: Cholecystectomy, Orthopedic Surgery - rt knee, Tonsillectomy Social History Lives with: Family Smoking Status: Current Every Day Smoker Cigarettes Packs Per Day: 1 Electronic Cigarette use?: No Number of Years Smokin Last Time Smoked: 05/29/20 Frequency of Alcohol Use: Occasional Drugs: Marijuana Hx Prescription Drug Abuse: No Family History Family History: Reviewed & Not Pertinent, Arthritis, CAD, DM, Hyperlipidemia, Hypertension, Malignancy, Thyroid Disfunction Parental Family History Reviewed: Yes Children Family History Reviewed: Yes Sibling(s) Family History Reviewed.: Yes Medication/Allergy Home Medications: Divalproex Sodium [Depakote ER 500 mg Tab.sr] 500 mg PO BID 05/30/20 Fluoxetine HCl [Prozac 20 mg Capsule] 20 mg PO QPM 05/30/20 Fluoxetine HCl [Prozac 20 mg Capsule] 40 mg PO QAM 05/30/20 Hydrochlorothiazide [Hydrodiuril 25 mg Tablet] 25 mg PO DAILY 05/30/20 Hydrocodone/Acetaminophen [[place] 5-325 mg Tablet] 1 tab PO Q8HP PRN 05/30/20 Hydroxyzine Pamoate [Vistaril 50 mg Capsule] 50 mg PO QHS 05/30/20 Propranolol HCl [Inderal 10 mg Tablet] 10 mg PO BID 05/30/20 Allergies/Adverse Reactions: Penicillins Allergy (Verified 05/29/20 20:08) tramadol [Tramadol] Allergy (Verified 05/29/20 20:08) Review of Systems Constitutional: PRESENT: chills, fever(s). ABSENT: anorexia, fatigue Eyes: ABSENT: visual disturbances Ears: ABSENT: hearing changes Nose, Mouth, and Throat: ABSENT: headache(s) Cardiovascular: ABSENT: chest pain Respiratory: ABSENT: cough, dyspnea Gastrointestinal: ABSENT: abdominal pain, bloating, constipation, diarrhea, dysphagia, nausea, vomiting Genitourinary: ABSENT: dysuria Musculoskeletal: ABSENT: back pain Integumentary: ABSENT: pruritus, rash Neurological: ABSENT: confusion, convulsions, dizziness Psychiatric: ABSENT: anxiety, depression Endocrine: ABSENT: cold intolerance, heat intolerance Hematologic/Lymphatic: ABSENT: easy bleeding, easy bruising Physical Exam Vital Signs: Temp Pulse Resp BP Pulse Ox 98.2 F 75 17 115/61 100 05/31/20 12:25 05/31/20 12:25 05/31/20 08:00 05/31/20 12:25 05/31/20 12:25 Intake & Output 05/30/20 05/31/20 06/01/20 06:59 06:59 06:59 Intake Total 3100 2450 50 Balance 3100 2450 50 Weight 101.8 kg 101.8 kg General appearance: PRESENT: mild distress Head exam: PRESENT: atraumatic, normocephalic Eye exam: PRESENT: EOMI, PERRLA. ABSENT: scleral icterus Mouth exam: PRESENT: moist, neck supple Neck exam: ABSENT: meningismus, tenderness, thyromegaly, tracheal deviation Respiratory exam: PRESENT: unlabored. ABSENT: tachypnea, wheezes Cardiovascular exam: ABSENT: tachycardia Pulses: PRESENT: normal radial pulses Vascular exam: PRESENT: normal capillary refill. ABSENT: pallor GI/Abdominal exam: PRESENT: soft. ABSENT: distended, firm, rigid, tenderness Rectal exam: PRESENT: deferred Extremities exam: PRESENT: other - Right upper extremity edema from the mid forearm to the mid upper arm. There is erythema present, as well as fluctuance superior to the elbow. Musculoskeletal exam: PRESENT: full ROM - Range of motion of the right upper extremity is not hindered, however there is some pain with passive motion. There is currently no evidence of compartment syndrome. Neurological exam: PRESENT: alert, awake, oriented to person, oriented to place, CN II-XII grossly intact. ABSENT: motor sensory deficit Psychiatric exam: ABSENT: agitated, anxious, depressed Focused psych exam: ABSENT: delusional Skin exam: PRESENT: erythema - Right upper extremity, as noted above. ABSENT: cyanosis, jaundice Results Laboratory Results: 05/31/20 05:10 05/31/20 05:10 05/31/20 05/31/20 05:10 05:10 WBC 25.9 H RBC 4.47 Hgb 14.0 Hct 41.1 MCV 92 MCH 31.4 MCHC 34.2 RDW 15.1 H Plt Count 242 Seg Neutrophils % Not Reportable Sodium 139.0 Potassium 3.5 L Chloride 105 Carbon Dioxide 23 Anion Gap 11 BUN 7 Creatinine 0.57 Est GFR ( Amer) > 60 Glucose 91 Calcium 9.1 Magnesium 2.1 Total Bilirubin 1.3 AST 50 Alkaline Phosphatase 107 C-Reactive Protein 371.8 H Total Protein 6.7 Albumin 3.5 Impressions: Elbow X-Ray 05/29/20 20:12 IMPRESSION: No evidence of acute displaced fracture of the elbow. Upper Extremity MRI 05/30/20 08:00 IMPRESSION: 1. No suggestion of osteomyelitis or abscess or gross myositis. 2. Extensive cellulitis. Assessment & Plan - Diagnosis (1) Abscess of right arm Is this a current diagnosis for this admission?: Yes - Plan Summary Plan Summary: This is 49-year-old male with an abscess in the right arm. He has worsening erythema and induration. The patient will require operative intervention. The patient is currently eating. I will make him n.p.o. after midnight. Add Cipro and Flagyl to cover anaerobic bacteria as well as gram-negative's. Continue with vancomycin. Surgery will continue to follow.
[2020-05-31] MEDS: NORMAL SALINE 1000 ML 1,000 ML IV PRN (13:42)
[2020-05-31] MEDS: OXYCODONE-ACETAMINOPHEN 5-325 MG TABLET PO PRN (15:59)
[2020-05-31] MEDS ORDERED: VANCOMYCIN HCL 1,500 MG in DEXTROSE 5%-WATER 250 ML IV ONE (16:00)
[2020-05-31] MEDS ORDERED: VANCOMYCIN HCL INJ 1000 MG VIAL IV SCH (18:00)
[2020-05-31] MEDS: HYDROXYZINE PAMOATE 50 MG CAPSULE PO SCH (21:45)
[2020-06-01] MEDS: VANCOMYCIN HCL 1,000 MG in DEXTROSE 5%-WATER 250 ML IV SCH ×3 (01:05→17:43)
[2020-06-01] MEDS ORDERED: GLUCAGON,HUMAN RECOMB 1 MG INJ SUBCUT PRN (01:40)
[2020-06-01] MEDS ORDERED: DEXTROSE 40% GEL 15 GM TUBE PO PRN ×2 (01:40)
[2020-06-01] MEDS ORDERED: DEXTROSE 50%-WATER 25 GM/50 ML DISP.SYRIN IV PRN ×2 (01:40)
[2020-06-01] MEDS: PROPRANOLOL HCL 10 MG TABLET PO SCH ×2 (05:22→17:36)
[2020-06-01] MEDS: METRONIDAZOLE 500 MG/NS RTU 500 MG/100 ML RTUPB IV SCH ×3 (05:27→22:19)
[2020-06-01 06:08] LABS: HEMOGLOBIN 13.7 g/dL (13.5-17.0); MEAN CORPUSCULAR HEMOGLOBIN 31.1 pg (27.0-33.4); MEAN CORPUSCULAR HGB CONC 34.1 g/dL (32.0-36.0); MEAN CORPUSCULAR VOLUME 91 fl (80-97); PLATELET COUNT 275 10^3/uL (150-450); RED BLOOD COUNT 4.39 10^6/uL (4.35-5.55); RED CELL DISTRIBUTION WIDTH 15.4 % (11.5-14.0)
[2020-06-01] MEDS ORDERED: LIDOCAINE 1% INJ-PF (10 MG/ML) 30 ML SDV ONE (06:08)
[2020-06-01] MEDS ORDERED: FENTANYL CITRATE INJ/PF 100 MCG/2 ML AMPUL ONE (06:12)
--- NOTE | 2020-06-01 06:12 | PDOC PROGRESS REPORT ---
Subjective Progress Note for:: 06/01/20 Subjective:: 29-year-old male with a large right upper extremity abscess. He continues to complain of severe pain. He denies chest pain, shortness of breath, nausea, vomiting, dizziness, orthostasis. Reason For Visit: RT ELBOW CELLULITIS Physical Exam Vital Signs: Temp Pulse Resp BP Pulse Ox 99.3 F 75 16 113/54 L 97 06/01/20 01:05 06/01/20 00:37 06/01/20 00:37 05/31/20 23:26 06/01/20 00:37 Intake & Output 05/30/20 05/31/20 06/01/20 06:59 06:59 06:59 Intake Total 3100 2450 2350 Balance 3100 2450 2350 Weight 101.8 kg 101.8 kg 110 kg Musculoskeletal exam: PRESENT: other - Right arm with large amounts of induration, erythema, fluctuance, and edema. He does have pain with passive motion, although his range of motion does not appear to be impeded. He does not have motor or sensory deficits. Results Laboratory Results: 05/31/20 05:10 Sodium 139.0 Potassium 3.5 L Chloride 105 Carbon Dioxide 23 Anion Gap 11 BUN 7 Creatinine 0.57 Est GFR ( Amer) > 60 Glucose 91 Calcium 9.1 Magnesium 2.1 Total Bilirubin 1.3 AST 50 Alkaline Phosphatase 107 C-Reactive Protein 371.8 H Total Protein 6.7 Albumin 3.5 Impressions: Elbow X-Ray 05/29/20 20:12 IMPRESSION: No evidence of acute displaced fracture of the elbow. Upper Extremity MRI 05/30/20 08:00 IMPRESSION: 1. No suggestion of osteomyelitis or abscess or gross myositis. 2. Extensive cellulitis. Assessment & Plan - Diagnosis (1) Abscess of right arm Is this a current diagnosis for this admission?: Yes - Plan Summary Plan Summary: 29-year-old male with a large abscess of the right arm. Plan for incision and drainage today. Risk/benefits discussed, informed consent obtained, and all questions answered.
[2020-06-01] MEDS ORDERED: DEXAMETHASONE SOD PHOSPHATE INJ 4 MG/1 ML VIAL ONE (06:13)
[2020-06-01] MEDS ORDERED: MIDAZOLAM 2 MG/2 ML INJ ONE (06:13)
[2020-06-01] MEDS ORDERED: PROPOFOL INJ 200 MG/20 ML VIAL IV ONE (06:13)
[2020-06-01] MEDS ORDERED: ONDANSETRON HCL INJ/PF 4 MG/2 ML SDV ONE (06:13)
[2020-06-01] MEDS ORDERED: MORPHINE SULFATE 10 MG/ML INJ IV PRN (06:16)
[2020-06-01] MEDS ORDERED: DIPHENHYDRAMINE HCL 50 MG/ML VIAL IV PRN (06:16)
[2020-06-01] MEDS ORDERED: OXYCODONE-ACETAMINOPHEN 5-325 MG TABLET PO PRN ×2 (06:16)
[2020-06-01] MEDS ORDERED: MEPERIDINE HCL/PF INJ 25 MG/1 ML DISP.SYRIN IV PRN (06:16)
[2020-06-01] MEDS ORDERED: PROMETHAZINE HCL INJ 25 MG/1 ML VIAL IV PRN (06:16)
[2020-06-01] MEDS ORDERED: FENTANYL CITRATE INJ/PF 100 MCG/2 ML AMPUL IV PRN ×3 (06:16)
[2020-06-01 06:21] LABS: ALBUMIN 3.3 g/dL (3.5-5.0); ALKALINE PHOSPHATASE 129 U/L (38-126); ANION GAP 12 (5-19); ASPARTATE AMINO TRANSFERASE 77 U/L (17-59); BILIRUBIN,DIRECT 0.2 mg/dL (0.0-0.4); BILIRUBIN,TOTAL 0.8 mg/dL (0.2-1.3); BLOOD UREA NITROGEN 7 mg/dL (7-20); CALCIUM 8.7 mg/dL (8.4-10.2); CARBON DIOXIDE 24 mmol/L (22-30); CHLORIDE 101 mmol/L (98-107); POTASSIUM 3.5 mmol/L (3.6-5.0); TOTAL PROTEIN 6.5 g/dL (6.3-8.2)
[2020-06-01 06:31] LABS: GLUCOSE 68 mg/dL (75-110)
[2020-06-01 06:36] LABS: ABSOLUTE LYMPHOCYTES# (MANUAL) 4.1 10^3/uL (0.5-4.7); BAND NEUTROPHILS % (MANUAL) 1 % (3-5); BASOPHILS % (MANUAL) 0 % (0-2); EOSINOPHILS % (MANUAL) 1 % (0-6); LYMPHOCYTES % (MANUAL) 13 % (13-45); MONOCYTES % (MANUAL) 3 % (3-13); SEGMENTED NEUTROPHILS % (MAN) 82 % (42-78); TOTAL CELLS COUNTED 100
[2020-06-01 06:37] LABS: ANISOCYTOSIS SLIGHT; BURR CELLS SLIGHT; OVALOCYTES SLIGHT; POIKILOCYTOSIS SLIGHT
[2020-06-01 06:38] LABS: PLATELET CLUMPS PRESENT; PLATELET COMMENT ADEQUATE
[2020-06-01 06:41] LABS: WHITE BLOOD COUNT 31.8 10^3/uL (4.0-10.5)
[2020-06-01] MEDS ORDERED: HYDROMORPHONE HCL INJ/PF 2 MG/ML AMPULE ONE (06:48)
--- NOTE | 2020-06-01 07:44 | Operative Report ---
Nonrecallable Operative Report DATE OF SURGERY: 06/01/20 PREOPERATIVE DIAGNOSIS: Abscess of the right upper extremity POSTOPERATIVE DIAGNOSIS: Large, complex abscess of the right upper extremity OPERATION: Incision and drainage of a large, complex abscess of the right upper extremity SURGEON: RINA ESCOBAR ANESTHESIA: LMAC TISSUE REMOVED OR ALTERED: Wound culture COMPLICATIONS: None apparent ESTIMATED BLOOD LOSS: 50 cc PROCEDURE: Drain/implants: Kerlix soaked in Betadine. Procedure in detail: After informed consent was obtained, the patient was brought to the operating room and laid in the supine position. The area of the right upper extremity was prepped and draped in a normal sterile fashion. A large amount of fluctuance was seen at the lateral aspect of the elbow. An incision was created over this area of maximal fluctuance. A large abscess cavity was then identified. Wound cultures were taken. The incision was extended to approximately 15 cm, traversing the joint on the lateral aspect of the arm. There was a large cavity, with purulent material, and multiple loculations. The loculations were broken. Dorsally the cavity extended to a very medial position, distal to the elbow. A counterincision was created at the distalmost aspect of the cavity on the medial aspect of the arm. Hemostasis was then achieved using electrocautery. The wound was irrigated copiously. The wound was then packed with Betadine soaked Kerlix. A dressing was placed, and the procedure was concluded. All sponge, instrument, and needle counts were correct x2. Condition: Fair.
[2020-06-01] MEDS: DIVALPROEX SODIUM 500 MG TAB.SR.24H PO SCH ×2 (09:16→22:21)
[2020-06-01] MEDS: FLUOXETINE HCL 20 MG CAPSULE PO SCH ×2 (09:17→22:21)
[2020-06-01] MEDS: PREGABALIN 75 MG CAPSULE PO SCH ×3 (09:17→17:43)
[2020-06-01] MEDS: HYDROCHLOROTHIAZIDE 25 MG TABLET PO SCH (09:17)
[2020-06-01] MEDS: FAMOTIDINE 20 MG TABLET PO SCH ×2 (09:17→22:21)
[2020-06-01] MEDS: ENOXAPARIN SODIUM INJ 40 MG/0.4 ML DISP.SYRIN SUBCUT SCH (09:18)
--- NOTE | 2020-06-01 11:23 | PDOC PROGRESS REPORT ---
Subjective Progress Note for:: 06/01/20 Subjective:: 29 year old male past medical history of seizure disorder, arthritis, anxiety, bipolar disorder, PTSD, who is disabled due to his DJD and chronic back problems, presenting to ED complaining of right elbow swelling and tenderness. Right elbow pain started several days ago however it has been getting worse for the last 2 days. Yesterday morning when he woke up he noted that his right elbow was swollen, red, was unable to extend his left elbow. He describes his pain asconstant, aching, nonradiating, 7/10 on severity scale, associated with fever, chills, nausea and nonbilious and nonbloody vomiting. Denies any trauma, IV drug abuse, any other joint pain or swelling, any animal or insect bite, genital or oral lesions, any vision changes, any associated abdominal pain, or diarrhea, shortness of breath, chest pain. In ED was noted to have leukocytosis, fever. Right upper extremity x-ray did not show any acute abnormalities. Hospitalist consulted for admission. 05/30/2020 Patient is complaining of no appetite secondary to a headache. Still significant pain in his right arm. Still with marked swelling localized to the proximal forearm just proximal to the elbow. IV morphine provided some relief. 05/31/2020-patient is in extreme pain. As per the nurses buttonholer right arm swelling and redness worsening compared to yesterday. Patient is receiving IV morphine he still in extreme pain. Started on IV vancomycin and Zosyn, clindamycin discontinued. Surgical consult was requested to help in the management of the case. 06/01/2020-patient underwent surgery for complex abscess of the right upper extremity. WBC count went up to 31,000 today. Plan Cipro, Flagyl, vancomycin. On IV morphine IV morphine at this time. Comfortably in the bed communicating well. Not in distress. Reason For Visit: RT ELBOW CELLULITIS Physical Exam Vital Signs: Temp Pulse Resp BP Pulse Ox 99.1 F 78 16 122/64 98 06/01/20 10:06/01/20 10:06/01/20 10:06/01/20 10:06/01/20 07:44 Intake & Output 05/31/20 06/01/20 06/02/20 06:59 06:59 06:59 Intake Total 2450 3250 100 Output Total 10 Balance 2450 3240 100 Weight 101.8 kg 110 kg General appearance: PRESENT: no acute distress, well-developed Head exam: PRESENT: atraumatic Eye exam: PRESENT: PERRLA Mouth exam: PRESENT: moist, tongue midline Teeth exam: PRESENT: poor dentation Neck exam: ABSENT: carotid bruit, JVD, lymphadenopathy, thyromegaly Respiratory exam: PRESENT: decreased breath sounds Cardiovascular exam: PRESENT: RRR. ABSENT: diastolic murmur, rubs, systolic murmur GI/Abdominal exam: PRESENT: normal bowel sounds, soft. ABSENT: distended, guarding, mass, organolmegaly, rebound, tenderness Rectal exam: PRESENT: deferred Extremities exam: PRESENT: full ROM, other - Right upper extremity with Nathan wrap.. ABSENT: calf tenderness, clubbing, pedal edema Neurological exam: PRESENT: alert, awake, oriented to person, oriented to place, oriented to time, oriented to situation, CN II-XII grossly intact. ABSENT: motor sensory deficit Psychiatric exam: PRESENT: appropriate affect, normal mood. ABSENT: homicidal ideation, suicidal ideation Results Laboratory Results: 06/01/20 04:48 06/01/20 04:48 06/01/20 06/01/20 04:48 04:48 WBC 31.8 H* RBC 4.39 Hgb 13.7 Hct 40.0 MCV 91 MCH 31.1 MCHC 34.1 RDW 15.4 H Plt Count 275 Seg Neutrophils % Not Reportable Sodium 137.3 Potassium 3.5 L Chloride 101 Carbon Dioxide 24 Anion Gap 12 BUN 7 Creatinine 0.63 Est GFR ( Amer) > 60 Glucose 68 L Calcium 8.7 Magnesium 2.0 Total Bilirubin 0.8 AST 77 H Alkaline Phosphatase 129 H Total Protein 6.5 Albumin 3.3 L Impressions: Elbow X-Ray 05/29/20 20:12 IMPRESSION: No evidence of acute displaced fracture of the elbow. Upper Extremity MRI 05/30/20 08:00 IMPRESSION: 1. No suggestion of osteomyelitis or abscess or gross myositis. 2. Extensive cellulitis. Assessment and Plan - Diagnosis (1) Cellulitis of right elbow Is this a current diagnosis for this admission?: Yes Plan: Denies any IV drug abuse. Denies any trauma, insect or animal bites. Right elbow posterior aspect erythema and swelling. Right upper extremity are neurovascularly intact. Right upper extremity x-ray negative for any gas pockets. Empiric IV antibiotics, ESR, CRP, blood culture and wound care. Given presentation will get MRI of right upper extremity to rule out myositis or abscess. Will consult surgery based on MRI finding. 05/30/2020 Continue clindamycin. Monitor blood work including white blood cell count and inflammatory markers such as sed rate and CRP. Blood cultures are pending. MRI reveals cellulitis. No joint space infection or abscess. 05/31/2020-MRI of the right elbow with no abscess. Elbow x-ray was done no effusions no septic arthritis seen. As per the nurses buttonholer the swelling and redness is worse compared to yesterday. Consultation with Dr. Roberts is requested. I spoke to Dr. Roberts myself. He is going to see the patient today. Started on IV vancomycin and Zosyn. Blood cultures are pending. Patient is requesting [place] and the order was placed. He is also receiving IV morphine at this time. 06/01/2020-patient underwent for incision and drainage of large, complex abscess of the right upper extremity. Currently on Flagyl, Cipro, vancomycin. WBC count is 31,000. Plan is to continue the present management at this time. (2) Hypertension Qualifiers: Hypertension type: essential hypertension Qualified Code(s): I10 - Essential (primary) hypertension Is this a current diagnosis for this admission?: No Plan: Euvolemic. Normotensive. Takes hydrochlorothiazide at home. Resume home meds. Adjust meds as needed. PRN hydralazine. 05/30/2020 Continue home meds and monitor BP 05/31/2020-patient blood pressure today's 124/60. Stable. On IV hydralazine as needed as needed basis. 06/01/2020-blood pressure today's 129/80. Stable. (3) History of degenerative joint disease Is this a current diagnosis for this admission?: No Plan: History of extensive DJD. Resume home meds. Outpatient PCP follow-up. (4) Leukocytosis Qualifiers: Leukocytosis type: unspecified Qualified Code(s): D72.829 - Elevated white blood cell count, unspecified Is this a current diagnosis for this admission?: Yes Plan: Likely due to underlying cellulitis. Denies any history of IV drug abuse. No signs or symptoms of endocarditis. Empiric IV antibiotics. Follow-up blood culture. 2D echo based on blood culture results or if there is suspicion for endocarditis. 05/30/2020 With antibiotics white cell count has come down from 24,000-22,000. Anticipate a more significant improvement tomorrow. Continue antibiotic therapy. 05/31/2020-WBC count is 25,900 today. Patient is on IV clindamycin antibiotics were changed to IV vancomycin and Zosyn. blood Cultures are pending. 06/01/2020-WBC count today is 31,800. On IV Cipro, IV Flagyl, IV vancomycin. Blood cultures are negative so far. Wound culture is pending. (5) Tobacco abuse Is this a current diagnosis for this admission?: Yes
[2020-06-01] MEDS: CIPROFLOXACIN 400 MG/D5W RTU 400 MG/200 ML RTUPB IV SCH ×2 (13:19→23:58)
[2020-06-01] MEDS: OXYCODONE-ACETAMINOPHEN 5-325 MG TABLET PO PRN ×2 (13:19→22:28)
[2020-06-01] MEDS: NORMAL SALINE 1000 ML 1,000 ML IV PRN (22:18)
[2020-06-01] MEDS: HYDROXYZINE PAMOATE 50 MG CAPSULE PO SCH (22:21)
[2020-06-01] MEDS: ACETAMINOPHEN 325 MG TABLET PO PRN (23:58)
[2020-06-02] MEDS: VANCOMYCIN HCL 1,000 MG in DEXTROSE 5%-WATER 250 ML IV SCH ×2 (01:04→08:57)
[2020-06-02] MEDS: METRONIDAZOLE 500 MG/NS RTU 500 MG/100 ML RTUPB IV SCH ×3 (06:14→21:57)
[2020-06-02] MEDS: PROPRANOLOL HCL 10 MG TABLET PO SCH ×2 (06:15→18:06)
[2020-06-02] MEDS: FLUOXETINE HCL 20 MG CAPSULE PO SCH ×2 (08:48→21:57)
[2020-06-02] MEDS: MORPHINE SULFATE 10 MG/ML INJ IV PRN ×3 (08:49→23:34)
[2020-06-02 09:04] LABS: HEMATOCRIT 40.1 % (37.9-51.0); HEMOGLOBIN 13.8 g/dL (13.5-17.0); MEAN CORPUSCULAR HEMOGLOBIN 31.1 pg (27.0-33.4); MEAN CORPUSCULAR HGB CONC 34.3 g/dL (32.0-36.0); MEAN CORPUSCULAR VOLUME 91 fl (80-97); PLATELET COUNT 357 10^3/uL (150-450); RED BLOOD COUNT 4.43 10^6/uL (4.35-5.55); RED CELL DISTRIBUTION WIDTH 15.4 % (11.5-14.0)
[2020-06-02 09:19] LABS: ALBUMIN 3.6 g/dL (3.5-5.0); ALKALINE PHOSPHATASE 147 U/L (38-126); ANION GAP 13 (5-19); ASPARTATE AMINO TRANSFERASE 65 U/L (17-59); BILIRUBIN,DIRECT 0.1 mg/dL (0.0-0.4); BILIRUBIN,TOTAL 0.5 mg/dL (0.2-1.3); BLOOD UREA NITROGEN 8 mg/dL (7-20); CARBON DIOXIDE 26 mmol/L (22-30); CHLORIDE 101 mmol/L (98-107); GLUCOSE 77 mg/dL (75-110); POTASSIUM 3.3 mmol/L (3.6-5.0); TOTAL PROTEIN 7.2 g/dL (6.3-8.2)
[2020-06-02 09:20] LABS: VANCOMYCIN,TROUGH 8.1 ug/mL (5.0-20.0)
[2020-06-02 09:25] LABS: WHITE BLOOD COUNT 32.8 10^3/uL (4.0-10.5)
[2020-06-02 09:28] LABS: ABSOLUTE LYMPHOCYTES# (MANUAL) 2.3 10^3/uL (0.5-4.7); BASOPHILS % (MANUAL) 0 % (0-2); EOSINOPHILS % (MANUAL) 0 % (0-6); LYMPHOCYTES % (MANUAL) 7 % (13-45); MONOCYTES % (MANUAL) 6 % (3-13); SEGMENTED NEUTROPHILS % (MAN) 87 % (42-78); TOTAL CELLS COUNTED 100
[2020-06-02 09:29] LABS: ANISOCYTOSIS SLIGHT; PLATELET COMMENT ADEQUATE
[2020-06-02] MEDS ORDERED: POTASSIUM CHLORIDE 10 MEQ TABLET.ER PO ONE (09:39)
--- NOTE | 2020-06-02 09:41 | PDOC PROGRESS REPORT ---
Subjective Progress Note for:: 06/02/20 Subjective:: 29 year old male past medical history of seizure disorder, arthritis, anxiety, bipolar disorder, PTSD, who is disabled due to his DJD and chronic back problems, presenting to ED complaining of right elbow swelling and tenderness. Right elbow pain started several days ago however it has been getting worse for the last 2 days. Yesterday morning when he woke up he noted that his right elbow was swollen, red, was unable to extend his left elbow. He describes his pain asconstant, aching, nonradiating, 7/10 on severity scale, associated with fever, chills, nausea and nonbilious and nonbloody vomiting. Denies any trauma, IV drug abuse, any other joint pain or swelling, any animal or insect bite, genital or oral lesions, any vision changes, any associated abdominal pain, or diarrhea, shortness of breath, chest pain. In ED was noted to have leukocytosis, fever. Right upper extremity x-ray did not show any acute abnormalities. Hospitalist consulted for admission. 05/30/2020 Patient is complaining of no appetite secondary to a headache. Still significant pain in his right arm. Still with marked swelling localized to the proximal forearm just proximal to the elbow. IV morphine provided some relief. 05/31/2020-patient is in extreme pain. As per the nurses jd edwards consultant right arm swelling and redness worsening compared to yesterday. Patient is receiving IV morphine he still in extreme pain. Started on IV vancomycin and Zosyn, clindamycin discontinued. Surgical consult was requested to help in the management of the case. 06/01/2020-patient underwent surgery for complex abscess of the right upper extremity. WBC count went up to 31,000 today. Plan Cipro, Flagyl, vancomycin. On IV morphine IV morphine at this time. Comfortably in the bed communicating well. Not in distress. 06/02/2020-patient has incision and drainage of the right upper extremity abscess. On ciprofloxacin, Flagyl, vancomycin. Will BC count today is 32,800. Cultures are negative, wound cultures are pending. Reason For Visit: RT ELBOW CELLULITIS Physical Exam Vital Signs: Temp Pulse Resp BP Pulse Ox 98.2 F 60 16 116/66 100 06/02/20 07:14 06/02/20 07:14 06/02/20 07:14 06/02/20 07:14 06/02/20 07:14 Intake & Output 06/01/20 06/02/20 06/03/20 06:59 06:59 06:59 Intake Total 4250 4492 Output Total 10 Balance 4240 4492 Weight 110 kg 110 kg General appearance: PRESENT: no acute distress, well-developed Head exam: PRESENT: atraumatic Eye exam: PRESENT: PERRLA Ear exam: PRESENT: normal external ear exam Teeth exam: PRESENT: poor dentation Neck exam: ABSENT: carotid bruit, JVD, lymphadenopathy, thyromegaly Respiratory exam: PRESENT: decreased breath sounds Cardiovascular exam: PRESENT: RRR. ABSENT: diastolic murmur, rubs, systolic murmur GI/Abdominal exam: PRESENT: normal bowel sounds, soft. ABSENT: distended, guarding, mass, organolmegaly, rebound, tenderness Rectal exam: PRESENT: deferred Extremities exam: PRESENT: other - Right arm is wrapped in dressing. Neurological exam: PRESENT: alert, awake, oriented to person, oriented to place, oriented to time, oriented to situation, CN II-XII grossly intact. ABSENT: motor sensory deficit Psychiatric exam: PRESENT: appropriate affect, normal mood. ABSENT: homicidal ideation, suicidal ideation Results Laboratory Results: 06/02/20 07:40 06/02/20 07:40 06/02/20 06/02/20 07:40 07:40 WBC 32.8 H* RBC 4.43 Hgb 13.8 Hct 40.1 MCV 91 MCH 31.1 MCHC 34.3 RDW 15.4 H Plt Count 357 Seg Neutrophils % Not Reportable Sodium 139.8 Potassium 3.3 L Chloride 101 Carbon Dioxide 26 Anion Gap 13 BUN 8 Creatinine 0.52 Est GFR ( Amer) > 60 Glucose 77 Calcium 9.0 Magnesium 2.0 Total Bilirubin 0.5 AST 65 H Alkaline Phosphatase 147 H Total Protein 7.2 Albumin 3.6 Impressions: Elbow X-Ray 05/29/20 20:12 IMPRESSION: No evidence of acute displaced fracture of the elbow. Upper Extremity MRI 05/30/20 08:00 IMPRESSION: 1. No suggestion of osteomyelitis or abscess or gross myositis. 2. Extensive cellulitis. Assessment and Plan - Diagnosis (1) Cellulitis of right elbow Is this a current diagnosis for this admission?: Yes Plan: Denies any IV drug abuse. Denies any trauma, insect or animal bites. Right elbow posterior aspect erythema and swelling. Right upper extremity are neurovascularly intact. Right upper extremity x-ray negative for any gas pockets. Empiric IV antibiotics, ESR, CRP, blood culture and wound care. Given presentation will get MRI of right upper extremity to rule out myositis or abscess. Will consult surgery based on MRI finding. 05/30/2020 Continue clindamycin. Monitor blood work including white blood cell count and inflammatory markers such as sed rate and CRP. Blood cultures are pending. MRI reveals cellulitis. No joint space infection or abscess. 05/31/2020-MRI of the right elbow with no abscess. Elbow x-ray was done no effusions no septic arthritis seen. As per the nurses jd edwards consultant the swelling and redness is worse compared to yesterday. Consultation with Dr. Roberts is requested. I spoke to Dr. Roberts myself. He is going to see the patient today. Started on IV vancomycin and Zosyn. Blood cultures are pending. Patient is requesting [place] and the order was placed. He is also receiving IV morphine at this time. 06/01/2020-patient underwent for incision and drainage of large, complex abscess of the right upper extremity. Currently on Flagyl, Cipro, vancomycin. WBC count is 31,000. Plan is to continue the present management at this time. 06/02/2020-patient went for incision and drainage of large complex abscess of the right upper extremity. Presently on IV Flagyl, Cipro, IV vancomycin. Blood cultures are negative wound culture is pending at this time. wBC count went up to 32,800 today. (2) Hypertension Qualifiers: Hypertension type: essential hypertension Qualified Code(s): I10 - Essential (primary) hypertension Is this a current diagnosis for this admission?: No Plan: Euvolemic. Normotensive. Takes hydrochlorothiazide at home. Resume home meds. Adjust meds as needed. PRN hydralazine. 05/30/2020 Continue home meds and monitor BP 05/31/2020-patient blood pressure today's 124/60. Stable. On IV hydralazine as needed as needed basis. 06/01/2020-blood pressure today's 129/80. Stable. 06/02/2020-blood pressure today's 132/66. Stable. (3) History of degenerative joint disease Is this a current diagnosis for this admission?: No Plan: History of extensive DJD. Resume home meds. Outpatient PCP follow-up. (4) Leukocytosis Qualifiers: Leukocytosis type: unspecified Qualified Code(s): D72.829 - Elevated white blood cell count, unspecified Is this a current diagnosis for this admission?: Yes Plan: Likely due to underlying cellulitis. Denies any history of IV drug abuse. No signs or symptoms of endocarditis. Empiric IV antibiotics. Follow-up blood culture. 2D echo based on blood culture results or if there is suspicion for endocarditis. 05/30/2020 With antibiotics white cell count has come down from 24,000-22,000. Anticipate a more significant improvement tomorrow. Continue antibiotic therapy. 05/31/2020-WBC count is 25,900 today. Patient is on IV clindamycin antibiotics were changed to IV vancomycin and Zosyn. blood Cultures are pending. 06/01/2020-WBC count today is 31,800. On IV Cipro, IV Flagyl, IV vancomycin. Blood cultures are negative so far. Wound culture is pending. 06/02/2020-WBC count is 32,800. On ciprofloxacin, IV Flagyl, IV vancomycin. Wound cultures are pending blood cultures are negative so far. (5) Tobacco abuse Is this a current diagnosis for this admission?: Yes Plan: Counseled on quitting. Nicotine patch will be provided.
--- NOTE | 2020-06-02 10:23 | PDOC PROGRESS REPORT ---
Subjective Progress Note for:: 06/02/20 Subjective:: s/p rt arm abscess debridement Reason For Visit: RT ELBOW CELLULITIS Physical Exam Vital Signs: Temp Pulse Resp BP Pulse Ox 98.2 F 60 16 116/66 100 06/02/20 07:14 06/02/20 07:14 06/02/20 07:14 06/02/20 07:14 06/02/20 07:14 Intake & Output 06/01/20 06/02/20 06/03/20 06:59 06:59 06:59 Intake Total 4250 4492 Output Total 10 Balance 4240 4492 Weight 110 kg 110 kg General appearance: PRESENT: mild distress Head exam: PRESENT: normocephalic Eye exam: PRESENT: EOMI Ear exam: PRESENT: normal external ear exam Mouth exam: PRESENT: moist Teeth exam: PRESENT: poor dentation Neck exam: PRESENT: full ROM Respiratory exam: PRESENT: clear to auscultation willian Cardiovascular exam: PRESENT: RRR Pulses: PRESENT: normal radial pulses, normal femoral pulses Vascular exam: PRESENT: normal capillary refill Breast: PRESENT: Normal GI/Abdominal exam: PRESENT: soft Rectal exam: PRESENT: deferred Extremities exam: PRESENT: other - rt arm dressing removed this am celluitis sl increased no obvious undrained fluid collection Musculoskeletal exam: PRESENT: tenderness Neurological exam: PRESENT: alert, awake, oriented to person, oriented to place Psychiatric exam: PRESENT: anxious Skin exam: PRESENT: dry Results Laboratory Results: 06/02/20 07:40 06/02/20 07:40 06/02/20 06/02/20 07:40 07:40 WBC 32.8 H* RBC 4.43 Hgb 13.8 Hct 40.1 MCV 91 MCH 31.1 MCHC 34.3 RDW 15.4 H Plt Count 357 Seg Neutrophils % Not Reportable Sodium 139.8 Potassium 3.3 L Chloride 101 Carbon Dioxide 26 Anion Gap 13 BUN 8 Creatinine 0.52 Est GFR ( Amer) > 60 Glucose 77 Calcium 9.0 Magnesium 2.0 Total Bilirubin 0.5 AST 65 H Alkaline Phosphatase 147 H Total Protein 7.2 Albumin 3.6 Impressions: Elbow X-Ray 05/29/20 20:12 IMPRESSION: No evidence of acute displaced fracture of the elbow. Upper Extremity MRI 05/30/20 08:00 IMPRESSION: 1. No suggestion of osteomyelitis or abscess or gross myositis. 2. Extensive cellulitis. Assessment & Plan - Plan Summary Plan Summary: right arm abscess, s/p i and d rt arm dressing removed this am celluitis sl increased no obvious undrained fluid collection will cont iv abx start tid dressing changes wet to dry with ns trend wbc
[2020-06-02] MEDS: CIPROFLOXACIN 400 MG/D5W RTU 400 MG/200 ML RTUPB IV SCH ×2 (11:21→23:34)
[2020-06-02] MEDS: PREGABALIN 75 MG CAPSULE PO SCH ×3 (11:21→21:55)
[2020-06-02] MEDS: HYDROCHLOROTHIAZIDE 25 MG TABLET PO SCH (11:21)
[2020-06-02] MEDS: ENOXAPARIN SODIUM INJ 40 MG/0.4 ML DISP.SYRIN SUBCUT SCH (11:21)
[2020-06-02] MEDS: FAMOTIDINE 20 MG TABLET PO SCH ×2 (11:21→21:55)
[2020-06-02] MEDS: DIVALPROEX SODIUM 500 MG TAB.SR.24H PO SCH ×2 (11:22→21:55)
[2020-06-02] MEDS ORDERED: VANCOMYCIN HCL 1,500 MG in DEXTROSE 5%-WATER 250 ML IV SCH (14:00)
[2020-06-02] MEDS: OXYCODONE-ACETAMINOPHEN 5-325 MG TABLET PO PRN ×2 (17:53→21:56)
[2020-06-02] MEDS: VANCOMYCIN HCL 1,500 MG in DEXTROSE 5%-WATER 250 ML IV SCH (18:00)
[2020-06-02] MEDS: HYDROXYZINE PAMOATE 50 MG CAPSULE PO SCH (21:58)
[2020-06-03] MEDS: VANCOMYCIN HCL 1,500 MG in DEXTROSE 5%-WATER 250 ML IV SCH ×3 (02:14→17:17)
[2020-06-03] MEDS: NORMAL SALINE 1000 ML 1,000 ML IV PRN (02:15)
[2020-06-03] MEDS: OXYCODONE-ACETAMINOPHEN 5-325 MG TABLET PO PRN ×2 (02:31→08:49)
[2020-06-03] MEDS: METRONIDAZOLE 500 MG/NS RTU 500 MG/100 ML RTUPB IV SCH ×3 (06:13→21:09)
[2020-06-03] MEDS: PROPRANOLOL HCL 10 MG TABLET PO SCH ×3 (06:14→17:19)
[2020-06-03 06:45] LABS: HEMOGLOBIN 13.7 g/dL (13.5-17.0); MEAN CORPUSCULAR HEMOGLOBIN 31.1 pg (27.0-33.4); MEAN CORPUSCULAR HGB CONC 34.3 g/dL (32.0-36.0); MEAN CORPUSCULAR VOLUME 91 fl (80-97); PLATELET COUNT 381 10^3/uL (150-450); RED BLOOD COUNT 4.42 10^6/uL (4.35-5.55); RED CELL DISTRIBUTION WIDTH 15.4 % (11.5-14.0); WHITE BLOOD COUNT 22.3 10^3/uL (4.0-10.5)
[2020-06-03 07:02] LABS: ALBUMIN 3.3 g/dL (3.5-5.0); ALKALINE PHOSPHATASE 105 U/L (38-126); ANION GAP 10 (5-19); ASPARTATE AMINO TRANSFERASE 38 U/L (17-59); BILIRUBIN,TOTAL 0.5 mg/dL (0.2-1.3); BLOOD UREA NITROGEN 7 mg/dL (7-20); CALCIUM 8.9 mg/dL (8.4-10.2); CARBON DIOXIDE 26 mmol/L (22-30); CHLORIDE 103 mmol/L (98-107); GLUCOSE 81 mg/dL (75-110); POTASSIUM 3.4 mmol/L (3.6-5.0); TOTAL PROTEIN 6.6 g/dL (6.3-8.2)
[2020-06-03 07:11] LABS: ABSOLUTE LYMPHOCYTES# (MANUAL) 4.7 10^3/uL (0.5-4.7); ABSOLUTE MONOCYTES # (MANUAL) 0.4 10^3/uL (0.1-1.4); BAND NEUTROPHILS % (MANUAL) 4 % (3-5); BASOPHILS % (MANUAL) 0 % (0-2); EOSINOPHILS % (MANUAL) 0 % (0-6); LYMPHOCYTES % (MANUAL) 20 % (13-45); MONOCYTES % (MANUAL) 2 % (3-13); SEGMENTED NEUTROPHILS % (MAN) 73 % (42-78); TOTAL CELLS COUNTED 100
[2020-06-03 07:12] LABS: ANISOCYTOSIS SLIGHT; PLATELET COMMENT ADEQUATE
[2020-06-03] MEDS ORDERED: POTASSIUM CHLORIDE 20 MEQ PACKET PO ONE (07:18)
[2020-06-03] MEDS: FLUOXETINE HCL 20 MG CAPSULE PO SCH ×2 (08:48→21:08)
[2020-06-03] MEDS: HYDROCHLOROTHIAZIDE 25 MG TABLET PO SCH (09:23)
[2020-06-03] MEDS: FAMOTIDINE 20 MG TABLET PO SCH ×2 (09:23→21:08)
[2020-06-03] MEDS: PREGABALIN 75 MG CAPSULE PO SCH ×3 (09:25→17:17)
[2020-06-03] MEDS: ENOXAPARIN SODIUM INJ 40 MG/0.4 ML DISP.SYRIN SUBCUT SCH (09:26)
--- NOTE | 2020-06-03 09:28 | PDOC PROGRESS REPORT ---
Subjective Progress Note for:: 06/03/20 Subjective:: 29 year old male past medical history of seizure disorder, arthritis, anxiety, bipolar disorder, PTSD, who is disabled due to his DJD and chronic back problems, presenting to ED complaining of right elbow swelling and tenderness. Right elbow pain started several days ago however it has been getting worse for the last 2 days. Yesterday morning when he woke up he noted that his right elbow was swollen, red, was unable to extend his left elbow. He describes his pain asconstant, aching, nonradiating, 7/10 on severity scale, associated with fever, chills, nausea and nonbilious and nonbloody vomiting. Denies any trauma, IV drug abuse, any other joint pain or swelling, any animal or insect bite, genital or oral lesions, any vision changes, any associated abdominal pain, or diarrhea, shortness of breath, chest pain. In ED was noted to have leukocytosis, fever. Right upper extremity x-ray did not show any acute abnormalities. Hospitalist consulted for admission. 05/30/2020 Patient is complaining of no appetite secondary to a headache. Still significant pain in his right arm. Still with marked swelling localized to the proximal forearm just proximal to the elbow. IV morphine provided some relief. 05/31/2020-patient is in extreme pain. As per the nurses director of laboratory operations right arm swelling and redness worsening compared to yesterday. Patient is receiving IV morphine he still in extreme pain. Started on IV vancomycin and Zosyn, clindamycin discontinued. Surgical consult was requested to help in the management of the case. 06/01/2020-patient underwent surgery for complex abscess of the right upper extremity. WBC count went up to 31,000 today. Plan Cipro, Flagyl, vancomycin. On IV morphine IV morphine at this time. Comfortably in the bed communicating well. Not in distress. 06/02/2020-patient has incision and drainage of the right upper extremity abscess. On ciprofloxacin, Flagyl, vancomycin. Will BC count today is 32,800. Cultures are negative, wound cultures are pending. 06/03/2020-patient came in with right upper extremity erythema redness and swelling found to have a complex abscess status post incision and drainage was done. Wound cultures growing group A beta Streptococcus. Presently on Flagyl, Cipro, vancomycin. WBC count improved to 22,300. Temp is 98.4. Comfortably in the unit communicating well expressing desire to go home. Reason For Visit: RT ELBOW CELLULITIS Physical Exam Vital Signs: Temp Pulse Resp BP Pulse Ox 97.7 F 61 12 115/57 L 99 06/03/20 07:31 06/03/20 07:31 06/03/20 07:31 06/03/20 07:31 06/03/20 07:31 Intake & Output 06/02/20 06/03/20 06/04/20 06:59 06:59 06:59 Intake Total 4492 5430 Balance 4492 5430 Weight 110 kg 94.9 kg General appearance: PRESENT: no acute distress, well-developed Head exam: PRESENT: atraumatic Eye exam: PRESENT: PERRLA Mouth exam: PRESENT: moist, tongue midline Teeth exam: PRESENT: poor dentation Neck exam: ABSENT: carotid bruit, JVD, lymphadenopathy, thyromegaly Respiratory exam: PRESENT: decreased breath sounds Cardiovascular exam: PRESENT: RRR. ABSENT: diastolic murmur, rubs, systolic murmur Pulses: PRESENT: normal dorsalis pedis pul GI/Abdominal exam: PRESENT: normal bowel sounds, soft. ABSENT: distended, guarding, mass, organolmegaly, rebound, tenderness Rectal exam: PRESENT: deferred Extremities exam: PRESENT: full ROM. ABSENT: calf tenderness, clubbing, pedal edema Neurological exam: PRESENT: alert, awake, oriented to person, oriented to place, oriented to time, oriented to situation, CN II-XII grossly intact. ABSENT: motor sensory deficit Psychiatric exam: PRESENT: appropriate affect, normal mood. ABSENT: homicidal ideation, suicidal ideation Results Laboratory Results: 06/03/20 06:14 06/03/20 06:14 06/02/20 06/02/20 06/03/20 07:40 07:40 06:14 WBC 32.8 H* 22.3 H RBC 4.43 4.42 Hgb 13.8 13.7 Hct 40.1 40.0 MCV 91 91 MCH 31.1 31.1 MCHC 34.3 34.3 RDW 15.4 H 15.4 H Plt Count 357 381 Seg Neutrophils % Not Reportable Not Reportable Sodium 139.8 Potassium 3.3 L Chloride 101 Carbon Dioxide 26 Anion Gap 13 BUN 8 Creatinine 0.52 Est GFR ( Amer) > 60 Glucose 77 Calcium 9.0 Magnesium 2.0 Total Bilirubin 0.5 AST 65 H Alkaline Phosphatase 147 H Total Protein 7.2 Albumin 3.6 06/03/20 06:14 WBC RBC Hgb Hct MCV MCH MCHC RDW Plt Count Seg Neutrophils % Sodium 138.6 Potassium 3.4 L Chloride 103 Carbon Dioxide 26 Anion Gap 10 BUN 7 Creatinine 0.52 Est GFR ( Amer) > 60 Glucose 81 Calcium 8.9 Magnesium 1.8 Total Bilirubin 0.5 AST 38 Alkaline Phosphatase 105 Total Protein 6.6 Albumin 3.3 L Impressions: Elbow X-Ray 05/29/20 20:12 IMPRESSION: No evidence of acute displaced fracture of the elbow. Upper Extremity MRI 05/30/20 08:00 IMPRESSION: 1. No suggestion of osteomyelitis or abscess or gross myositis. 2. Extensive cellulitis. Assessment and Plan - Diagnosis (1) Cellulitis of right elbow Is this a current diagnosis for this admission?: Yes Plan: Denies any IV drug abuse. Denies any trauma, insect or animal bites. Right elbow posterior aspect erythema and swelling. Right upper extremity are neurovascularly intact. Right upper extremity x-ray negative for any gas pockets. Empiric IV antibiotics, ESR, CRP, blood culture and wound care. Given presentation will get MRI of right upper extremity to rule out myositis or abscess. Will consult surgery based on MRI finding. 05/30/2020 Continue clindamycin. Monitor blood work including white blood cell count and inflammatory markers such as sed rate and CRP. Blood cultures are pending. MRI reveals cellulitis. No joint space infection or abscess. 05/31/2020-MRI of the right elbow with no abscess. Elbow x-ray was done no effusions no septic arthritis seen. As per the nurses director of laboratory operations the swelling and redness is worse compared to yesterday. Consultation with Dr. Roberts is requested. I spoke to Dr. Roberts myself. He is going to see the patient today. Started on IV vancomycin and Zosyn. Blood cultures are pending. Patient is requesting [place] and the order was placed. He is also receiving IV morphine at this time. 06/01/2020-patient underwent for incision and drainage of large, complex abscess of the right upper extremity. Currently on Flagyl, Cipro, vancomycin. WBC count is 31,000. Plan is to continue the present management at this time. 06/02/2020-patient went for incision and drainage of large complex abscess of the right upper extremity. Presently on IV Flagyl, Cipro, IV vancomycin. Blood cultures are negative wound culture is pending at this time. wBC count went up to 32,800 today. 06/03/2020-erythema redness and swelling is improving. Patient is afebrile. Wound cultures is growing group A beta Streptococcus. Is to continue IV antibiotic therapy at this time. To repeat the labs tomorrow. (2) Hypertension Qualifiers: Hypertension type: essential hypertension Qualified Code(s): I10 - Essential (primary) hypertension Is this a current diagnosis for this admission?: No Plan: Euvolemic. Normotensive. Takes hydrochlorothiazide at home. Resume home meds. Adjust meds as needed. PRN hydralazine. 05/30/2020 Continue home meds and monitor BP 05/31/2020-patient blood pressure today's 124/60. Stable. On IV hydralazine as needed as needed basis. 06/01/2020-blood pressure today's 129/80. Stable. 06/02/2020-blood pressure today's 132/66. Stable. 06/03/2020-blood pressure today is 117/64. Stable. (3) History of degenerative joint disease Is this a current diagnosis for this admission?: No Plan: History of extensive DJD. Resume home meds. Outpatient PCP follow-up. (4) Leukocytosis Qualifiers: Leukocytosis type: unspecified Qualified Code(s): D72.829 - Elevated white blood cell count, unspecified Is this a current diagnosis for this admission?: Yes Plan: Likely due to underlying cellulitis. Denies any history of IV drug abuse. No signs or symptoms of endocarditis. Empiric IV antibiotics. Follow-up blood culture. 2D echo based on blood culture results or if there is suspicion for endocarditis. 05/30/2020 With antibiotics white cell count has come down from 24,000-22,000. Anticipate a more significant improvement tomorrow. Continue antibiotic therapy. 05/31/2020-WBC count is 25,900 today. Patient is on IV clindamycin antibiotics were changed to IV vancomycin and Zosyn. blood Cultures are pending. 06/01/2020-WBC count today is 31,800. On IV Cipro, IV Flagyl, IV vancomycin. Blood cultures are negative so far. Wound culture is pending. 06/02/2020-WBC count is 32,800. On ciprofloxacin, IV Flagyl, IV vancomycin. Wound cultures are pending blood cultures are negative so far. 06/23/20-WBC count is 22,300. Leukocytosis is improving. Wound cultures are positive for group A beta hemolytic Streptococcus. (5) Tobacco abuse Is this a current diagnosis for this admission?: Yes Plan: Counseled on quitting. Nicotine patch will be provided. (6) Sepsis Is this a current diagnosis for this admission?: Yes Plan: 06/03/2020-patient came in with sepsis involving the right upper extremity with complex abscess, incision and drainage was done. Cultures growing group A beta hemolytic Streptococcus. Blood cultures are negative. Present on IV vancomycin, IV Flagyl, IV Cipro. Plan is to continue the antibiotic therapy.
[2020-06-03] MEDS: DIVALPROEX SODIUM 500 MG TAB.SR.24H PO SCH ×2 (09:29→21:09)
--- NOTE | 2020-06-03 11:11 | PDOC PROGRESS REPORT ---
Subjective Progress Note for:: 06/03/20 Reason For Visit: RT ELBOW CELLULITIS Physical Exam Vital Signs: Temp Pulse Resp BP Pulse Ox 97.7 F 61 12 115/57 L 99 06/03/20 07:31 06/03/20 07:31 06/03/20 07:31 06/03/20 07:31 06/03/20 07:31 Intake & Output 06/02/20 06/03/20 06/04/20 06:59 06:59 06:59 Intake Total 4492 5430 Balance 4492 5430 Weight 110 kg 94.9 kg Results Laboratory Results: 06/03/20 06:14 06/03/20 06:14 06/03/20 06/03/20 06:14 06:14 WBC 22.3 H RBC 4.42 Hgb 13.7 Hct 40.0 MCV 91 MCH 31.1 MCHC 34.3 RDW 15.4 H Plt Count 381 Seg Neutrophils % Not Reportable Sodium 138.6 Potassium 3.4 L Chloride 103 Carbon Dioxide 26 Anion Gap 10 BUN 7 Creatinine 0.52 Est GFR ( Amer) > 60 Glucose 81 Calcium 8.9 Magnesium 1.8 Total Bilirubin 0.5 AST 38 Alkaline Phosphatase 105 Total Protein 6.6 Albumin 3.3 L Impressions: Elbow X-Ray 05/29/20 20:12 IMPRESSION: No evidence of acute displaced fracture of the elbow. Upper Extremity MRI 05/30/20 08:00 IMPRESSION: 1. No suggestion of osteomyelitis or abscess or gross myositis. 2. Extensive cellulitis. Assessment & Plan - Diagnosis (1) Abscess of right arm Is this a current diagnosis for this admission?: Yes - Plan Summary Plan Summary: 29-year-old male status post I&D of a large right upper extremity abscess. The arm is much softer today. There is no purulence present. His erythema is improving. His leukocytosis is still significant, but is also improving. The patient's cultures grew Streptococcus. I would transition the patient to Bactrim DS p.o. twice daily at discharge. Continue with damp dressing changes twice daily. The patient has expressed an interest in going home (he even hinted about leaving the hospital AMA). It is okay for the patient to shower.
[2020-06-03] MEDS: CIPROFLOXACIN 400 MG/D5W RTU 400 MG/200 ML RTUPB IV SCH (13:12)
[2020-06-03 17:49] LABS: VANCOMYCIN,TROUGH 11.4 ug/mL (5.0-20.0)
[2020-06-03] MEDS: MORPHINE SULFATE 10 MG/ML INJ IV PRN (21:08)
[2020-06-03] MEDS: HYDROXYZINE PAMOATE 50 MG CAPSULE PO SCH (21:17)
[2020-06-04] MEDS: CIPROFLOXACIN 400 MG/D5W RTU 400 MG/200 ML RTUPB IV SCH (00:30)
[2020-06-04] MEDS: NORMAL SALINE 1000 ML 1,000 ML IV PRN (01:56)
[2020-06-04] MEDS: VANCOMYCIN HCL 1,500 MG in DEXTROSE 5%-WATER 250 ML IV SCH ×2 (01:58→09:38)
[2020-06-04] MEDS: OXYCODONE-ACETAMINOPHEN 5-325 MG TABLET PO PRN (02:00)
[2020-06-04 05:38] LABS: HEMATOCRIT 41.3 % (37.9-51.0); MEAN CORPUSCULAR HEMOGLOBIN 30.8 pg (27.0-33.4); MEAN CORPUSCULAR HGB CONC 33.9 g/dL (32.0-36.0); MEAN CORPUSCULAR VOLUME 91 fl (80-97); PLATELET COUNT 407 10^3/uL (150-450); RED BLOOD COUNT 4.55 10^6/uL (4.35-5.55); RED CELL DISTRIBUTION WIDTH 15.7 % (11.5-14.0); WHITE BLOOD COUNT 21.8 10^3/uL (4.0-10.5)
[2020-06-04 05:55] LABS: ABSOLUTE LYMPHOCYTES# (MANUAL) 5.2 10^3/uL (0.5-4.7); ABSOLUTE MONOCYTES # (MANUAL) 2.8 10^3/uL (0.1-1.4); BAND NEUTROPHILS % (MANUAL) 4 % (3-5); BASOPHILS % (MANUAL) 0 % (0-2); EOSINOPHILS % (MANUAL) 0 % (0-6); LYMPHOCYTES % (MANUAL) 24 % (13-45); MONOCYTES % (MANUAL) 13 % (3-13); SEGMENTED NEUTROPHILS % (MAN) 59 % (42-78); TOTAL CELLS COUNTED 100
[2020-06-04 05:56] LABS: ANISOCYTOSIS 1+; PLATELET COMMENT ADEQUATE; POLYCHROMASIA 1+
[2020-06-04 06:01] LABS: ALBUMIN 3.2 g/dL (3.5-5.0); ALKALINE PHOSPHATASE 107 U/L (38-126); ANION GAP 10 (5-19); ASPARTATE AMINO TRANSFERASE 30 U/L (17-59); BILIRUBIN,TOTAL 0.5 mg/dL (0.2-1.3); BLOOD UREA NITROGEN 6 mg/dL (7-20); CALCIUM 8.7 mg/dL (8.4-10.2); CARBON DIOXIDE 26 mmol/L (22-30); CHLORIDE 103 mmol/L (98-107); GLUCOSE 106 mg/dL (75-110); POTASSIUM 3.4 mmol/L (3.6-5.0); TOTAL PROTEIN 6.6 g/dL (6.3-8.2)
[2020-06-04] MEDS: METRONIDAZOLE 500 MG/NS RTU 500 MG/100 ML RTUPB IV SCH (06:31)
[2020-06-04] MEDS: PROPRANOLOL HCL 10 MG TABLET PO SCH (06:32)
--- NOTE | 2020-06-04 08:31 | PDOC PROGRESS REPORT ---
Subjective Progress Note for:: 06/04/20 Reason For Visit: RT ELBOW CELLULITIS Patient states his right arm feels better; no complaints of the right hand. Continues on intravenous vancomycin. Wounds growing beta-hemolytic strep Physical Exam Vital Signs: Temp Pulse Resp BP Pulse Ox 97.9 F 59 L 18 110/52 L 100 06/04/20 07:17 06/04/20 07:17 06/04/20 07:17 06/04/20 07:17 06/04/20 07:17 Intake & Output 06/03/20 06/04/20 06/05/20 06:59 06:59 06:59 Intake Total 5430 2667 Balance 5430 2667 Weight 94.9 kg 94.9 kg General appearance: PRESENT: no acute distress Musculoskeletal exam: PRESENT: other - Right extremity examined. Open wounds with some fibular is purulent material, but overall wounds are granulating. Range of motion of the elbow, forearm wrist all outstanding. No residual erythema. Results Laboratory Results: 06/04/20 05:18 06/04/20 05:18 06/03/20 06/04/20 06/04/20 17:05 05:18 05:18 WBC 21.8 H RBC 4.55 Hgb 14.0 Hct 41.3 MCV 91 MCH 30.8 MCHC 33.9 RDW 15.7 H Plt Count 407 Seg Neutrophils % Not Reportable Sodium 138.6 Potassium 3.4 L Chloride 103 Carbon Dioxide 26 Anion Gap 10 BUN 6 L Creatinine 0.59 0.50 L Est GFR ( Amer) > 60 > 60 Glucose 106 Calcium 8.7 Magnesium 2.0 Total Bilirubin 0.5 AST 30 Alkaline Phosphatase 107 Total Protein 6.6 Albumin 3.2 L 05/29/20 21:50 Blood Blood Culture - Final NO GROWTH IN 5 DAYS 05/29/20 21:27 Blood Blood Culture - Final NO GROWTH IN 5 DAYS 06/01/20 06:41 Arm - Right Gram Stain - Final 06/01/20 06:41 Arm - Right Wound Culture - Final Group A Beta Streptococcus No Anaerobic Organisms Impressions: Elbow X-Ray 05/29/20 20:12 IMPRESSION: No evidence of acute displaced fracture of the elbow. Upper Extremity MRI 05/30/20 08:00 IMPRESSION: 1. No suggestion of osteomyelitis or abscess or gross myositis. 2. Extensive cellulitis. Assessment & Plan - Diagnosis (1) Abscess of right arm Is this a current diagnosis for this admission?: Yes Plan: Impression: Patient is a 40 status post wide debridement right elbow for deep soft tissue infection, now doing well wounds cleaning nicely maximum, persisting leukocytosis; septic source appears controlled Plan: 1. Continue local wound care; patient may get in shower with a chlorhexidine scrub brush which will be provided today 2. Once leukocytosis resolved, patient can be managed on outpatient basis with p.o. antibiotics 3. Patient can follow-up with [place] [facility] after [facility], in a week to 10 days after discharge 4. The above discussed with Dr. Maldonado; surgery will sign off for now; reconsult if clinically indicated (2) Cellulitis of right elbow Is this a current diagnosis for this admission?: Yes
[2020-06-04] MEDS: PREGABALIN 75 MG CAPSULE PO SCH (09:38)
[2020-06-04] MEDS: DIVALPROEX SODIUM 500 MG TAB.SR.24H PO SCH (09:38)
[2020-06-04] MEDS: ENOXAPARIN SODIUM INJ 40 MG/0.4 ML DISP.SYRIN SUBCUT SCH (09:38)
[2020-06-04] MEDS: FLUOXETINE HCL 20 MG CAPSULE PO SCH (09:38)
[2020-06-04] MEDS: HYDROCHLOROTHIAZIDE 25 MG TABLET PO SCH (09:38)
[2020-06-04] MEDS: FAMOTIDINE 20 MG TABLET PO SCH (09:38)
--- NOTE | 2020-06-04 10:34 | PDOC DISCHARGE SUMMARY ---
Impression - Admit/DC Date/PCP Admission Date/Primary Care Provider: 05/30/20 00:29 SUKUMAR SALINAS PA-C Discharge Date: 06/04/20 - Discharge Diagnosis (1) Cellulitis of right elbow Is this a current diagnosis for this admission?: Yes (2) Hypertension Is this a current diagnosis for this admission?: No (3) History of degenerative joint disease Is this a current diagnosis for this admission?: No (4) Leukocytosis Is this a current diagnosis for this admission?: Yes (5) Tobacco abuse Is this a current diagnosis for this admission?: Yes (6) Sepsis Is this a current diagnosis for this admission?: Yes - Assessment Summary: (1) Cellulitis of right elbow Is this a current diagnosis for this admission?: Yes Plan: Denies any IV drug abuse. Denies any trauma, insect or animal bites. Right elbow posterior aspect erythema and swelling. Right upper extremity are neurovascularly intact. Right upper extremity x-ray negative for any gas pockets. Empiric IV antibiotics, ESR, CRP, blood culture and wound care. Given presentation will get MRI of right upper extremity to rule out myositis or abscess. Will consult surgery based on MRI finding. 05/30/2020 Continue clindamycin. Monitor blood work including white blood cell count and inflammatory markers such as sed rate and CRP. Blood cultures are pending. MRI reveals cellulitis. No joint space infection or abscess. 05/31/2020-MRI of the right elbow with no abscess. Elbow x-ray was done no effusions no septic arthritis seen. As per the nurses diamond grader the swelling and redness is worse compared to yesterday. Consultation with Dr. Roberts is requested. I spoke to Dr. Roberts myself. He is going to see the patient today. Started on IV vancomycin and Zosyn. Blood cultures are pending. Patient is requesting Hubbard and the order was placed. He is also receiving IV morphine at this time. 06/01/2020-patient underwent for incision and drainage of large, complex abscess of the right upper extremity. Currently on Flagyl, Cipro, vancomycin. WBC count is 31,000. Plan is to continue the present management at this time. 06/02/2020-patient went for incision and drainage of large complex abscess of the right upper extremity. Presently on IV Flagyl, Cipro, IV vancomycin. Blood cultures are negative wound culture is pending at this time. wBC count went up to 32,800 today. 06/03/2020-erythema redness and swelling is improving. Patient is afebrile. Wound cultures is growing group A beta Streptococcus. Is to continue IV antibiotic therapy at this time. To repeat the labs tomorrow. 06/04/2020-patient has a large wound on the right upper extremity. Seen by Dr. Martino this morning he would like to see the patient at Dr. Roberts's office in 10 days time. Recommendation is to be to do dressings. He signed off from the patient care. Patient is strongly expressing the desire to go home today on p.o. antibiotic.. Reluctantly discharge him. Explained to him in detail the risks and concerns I have. Patient understood and expressed his desire to go home. (2) Hypertension Qualifiers: Hypertension type: essential hypertension Qualified Code(s): I10 - Essential (primary) hypertension Is this a current diagnosis for this admission?: No Plan: Euvolemic. Normotensive. Takes hydrochlorothiazide at home. Resume home meds. Adjust meds as needed. PRN hydralazine. 05/30/2020 Continue home meds and monitor BP 05/31/2020-patient blood pressure today's 124/60. Stable. On IV hydralazine as needed as needed basis. 06/01/2020-blood pressure today's 129/80. Stable. 06/02/2020-blood pressure today's 132/66. Stable. 06/03/2020-blood pressure today is 117/64. Stable. 06/04/20-blood pressure today is 110/60. Stable. (3) History of degenerative joint disease Is this a current diagnosis for this admission?: No Plan: History of extensive DJD. Resume home meds. Outpatient PCP follow-up. (4) Leukocytosis Qualifiers: Leukocytosis type: unspecified Qualified Code(s): D72.829 - Elevated white blood cell count, unspecified Is this a current diagnosis for this admission?: Yes Plan: Likely due to underlying cellulitis. Denies any history of IV drug abuse. No signs or symptoms of endocarditis. Empiric IV antibiotics. Follow-up blood culture. 2D echo based on blood culture results or if there is suspicion for endocarditis. 05/30/2020 With antibiotics white cell count has come down from 24,000-22,000. Anticipate a more significant improvement tomorrow. Continue antibiotic therapy. 05/31/2020-WBC count is 25,900 today. Patient is on IV clindamycin antibiotics were changed to IV vancomycin and Zosyn. blood Cultures are pending. 06/01/2020-WBC count today is 31,800. On IV Cipro, IV Flagyl, IV vancomycin. Blood cultures are negative so far. Wound culture is pending. 06/02/2020-WBC count is 32,800. On ciprofloxacin, IV Flagyl, IV vancomycin. Wound cultures are pending blood cultures are negative so far. 06/23/20-WBC count is 22,300. Leukocytosis is improving. Wound cultures are positive for group A beta hemolytic Streptococcus. 06/24/2020-wound cultures came back positive for group B streptococcus biotic therapy Flagyl, Cipro, vancomycin. Plan is to discharge him on p.o. clindamycin at this time. Again I requested the patient to stay in the hospital for at least another day of IV antibiotic therapy he declined and prefers to go home. (5) Tobacco abuse Is this a current diagnosis for this admission?: Yes Plan: Counseled on quitting. Nicotine patch will be provided. (6) Sepsis Is this a current diagnosis for this admission?: Yes Plan: 06/03/2020-patient came in with sepsis involving the right upper extremity with complex abscess, incision and drainage was done. Cultures growing group A beta hemolytic Streptococcus. Blood cultures are negative. Present on IV vancomycin, IV Flagyl, IV Cipro. Plan is to continue the antibiotic therapy. 06/04/2020-WBC count is 21,800. Improving. But not back to baseline. As per the patient request p.o. clindamycin was given for him to go home and requested him to follow with Dr. Roberts in 10 days time. - Additional Information Resuscitation Status: Full Code Discharge Diet: Cardiac Discharge Activity: Activity As Tolerated Referrals: [facility] [Provider Group] Prescriptions: Clindamycin HCl 300 mg PO Q8 30 Days #10 capsule Home Medications: Divalproex Sodium [Depakote ER 500 mg Tab.sr] 500 mg PO BID 05/30/20 Fluoxetine HCl [Prozac 20 mg Capsule] 20 mg PO QPM 05/30/20 Fluoxetine HCl [Prozac 20 mg Capsule] 40 mg PO QAM 05/30/20 Hydrochlorothiazide [Hydrodiuril 25 mg Tablet] 25 mg PO DAILY 05/30/20 Hydrocodone/Acetaminophen [Hubbard 5-325 mg Tablet] 1 tab PO Q8HP PRN 05/30/20 Hydroxyzine Pamoate [Vistaril 50 mg Capsule] 50 mg PO QHS 05/30/20 Propranolol HCl [Inderal 10 mg Tablet] 10 mg PO BID 05/30/20 Cariprazine HCl [Vraylar] 1.5 mg PO DAILY 06/03/20 Clindamycin HCl 300 mg PO Q8 30 Days #10 capsule 06/04/20 Cyclobenzaprine HCl [Flexeril 10 mg Tablet] 5 mg PO Q8HP PRN tablet 06/04/20 History of Present Illiness History of Present Illness: SUE STOKES is a 29 year old male 29 year old male past medical history of seizure disorder, arthritis, anxiety, bipolar disorder, PTSD, who is disabled due to his DJD and chronic back problems, presenting to ED complaining of right elbow swelling and tenderness. Right elbow pain started several days ago however it has been getting worse for the last 2 days. Yesterday morning when he woke up he noted that his right elbow was swollen, red, was unable to extend his left elbow. He describes his pain asconstant, aching, nonradiating, 7/10 on severity scale, associated with fever, chills, nausea and nonbilious and nonbloody vomiting. Denies any trauma, IV drug abuse, any other joint pain or swelling, any animal or insect bite, genital or oral lesions, any vision changes, any associated abdominal pain, or diarrhea, shortness of breath, chest pain. In ED was noted to have leukocytosis, fever. Right upper extremity x-ray did not show any acute abnormalities. Hospitalist consulted for admission. Hospital Course Hospital Course: 29 year old male past medical history of seizure disorder, arthritis, anxiety, bipolar disorder, PTSD, who is disabled due to his DJD and chronic back problems, presenting to ED complaining of right elbow swelling and tenderness. Right elbow pain started several days ago however it has been getting worse for the last 2 days. Yesterday morning when he woke up he noted that his right elbow was swollen, red, was unable to extend his left elbow. He describes his pain asconstant, aching, nonradiating, 7/10 on severity scale, associated with fever, chills, nausea and nonbilious and nonbloody vomiting. Denies any trauma, IV drug abuse, any other joint pain or swelling, any animal or insect bite, genital or oral lesions, any vision changes, any associated abdominal pain, or diarrhea, shortness of breath, chest pain. In ED was noted to have leukocytosis, fever. Right upper extremity x-ray did not show any acute abnormalities. Hospitalist consulted for admission. 05/30/2020 Patient is complaining of no appetite secondary to a headache. Still significant pain in his right arm. Still with marked swelling localized to the proximal forearm just proximal to the elbow. IV morphine provided some relief. 05/31/2020-patient is in extreme pain. As per the nurses diamond grader right arm swelling and redness worsening compared to yesterday. Patient is receiving IV morphine he still in extreme pain. Started on IV vancomycin and Zosyn, clindamycin discontinued. Surgical consult was requested to help in the management of the case. 06/01/2020-patient underwent surgery for complex abscess of the right upper extremity. WBC count went up to 31,000 today. Plan Cipro, Flagyl, vancomycin. On IV morphine IV morphine at this time. Comfortably in the bed communicating well. Not in distress. 06/02/2020-patient has incision and drainage of the right upper extremity abscess. On ciprofloxacin, Flagyl, vancomycin. Will BC count today is 32,800. Cultures are negative, wound cultures are pending. 06/03/2020-patient came in with right upper extremity erythema redness and swelling found to have a complex abscess status post incision and drainage was done. Wound cultures growing group A beta Streptococcus. Presently on Flagyl, Cipro, vancomycin. WBC count improved to 22,300. Temp is 98.4. Comfortably in the unit communicating well expressing desire to go home. 06/04/20-patient expressing desire to go home on p.o. antibiotics. WBC count is still 21,800. Patient states she can manage with p.o. antibiotics at home. He is insisting on leaving. Explained to him in detail the risks involved he understood the risks but wants to go home. Plan to give clindamycin 300 mg 3 times daily for 10 days. Is strongly recommended to follow with Dr. Roberts in 10 days time. Patient understood and verbalized the response. Physical Exam Vital Signs: Temp Pulse Resp BP Pulse Ox 97.9 F 59 L 18 110/52 L 100 06/04/20 07:17 06/04/20 07:17 06/04/20 07:17 06/04/20 07:17 06/04/20 07:17 Intake & Output 06/03/20 06/04/20 06/05/20 06:59 06:59 06:59 Intake Total 5430 2917 Balance 5430 2917 Weight 94.9 kg 94.9 kg 94.9 kg General appearance: PRESENT: no acute distress, well-developed Head exam: PRESENT: atraumatic Eye exam: PRESENT: PERRLA Mouth exam: PRESENT: moist, tongue midline Teeth exam: PRESENT: poor dentation Neck exam: ABSENT: carotid bruit, JVD, lymphadenopathy, thyromegaly Respiratory exam: PRESENT: decreased breath sounds Cardiovascular exam: PRESENT: RRR. ABSENT: diastolic murmur, rubs, systolic murmur GI/Abdominal exam: PRESENT: normal bowel sounds, soft. ABSENT: distended, guarding, mass, organolmegaly, rebound, tenderness Rectal exam: PRESENT: deferred Extremities exam: PRESENT: other - Large open wound present on the right upper extremity.no Pus no drainage seen. healthy granulation tissue was seen. Neurological exam: PRESENT: alert, awake, oriented to person, oriented to place, oriented to time, oriented to situation, CN II-XII grossly intact. ABSENT: motor sensory deficit Psychiatric exam: PRESENT: appropriate affect, normal mood. ABSENT: homicidal ideation, suicidal ideation Results Laboratory Results: WBC 21.8 10^3/uL (4.0-10.5) H 06/04/20 05:18 RBC 4.55 10^6/uL (4.35-5.55) 06/04/20 05:18 Hgb 14.0 g/dL (13.5-17.0) 06/04/20 05:18 Hct 41.3 % (37.9-51.0) 06/04/20 05:18 MCV 91 fl (80-97) 06/04/20 05:18 MCH 30.8 pg (27.0-33.4) 06/04/20 05:18 MCHC 33.9 g/dL (32.0-36.0) 06/04/20 05:18 RDW 15.7 % (11.5-14.0) H 06/04/20 05:18 Plt Count 407 10^3/uL (150-450) 06/04/20 05:18 Lymph % (Auto) Not Reportable 06/04/20 05:18 Thomas % (Auto) Not Reportable 06/04/20 05:18 Eos % (Auto) Not Reportable 06/04/20 05:18 Baso % (Auto) Not Reportable 06/04/20 05:18 Absolute Neuts (auto) Not Reportable 06/04/20 05:18 Absolute Lymphs (auto) Not Reportable 06/04/20 05:18 Absolute Monos (auto) Not Reportable 06/04/20 05:18 Absolute Eos (auto) Not Reportable 06/04/20 05:18 Absolute Basos (auto) Not Reportable 06/04/20 05:18 Total Counted 100 06/04/20 05:18 Seg Neutrophils % Not Reportable 06/04/20 05:18 Seg Neuts % (Manual) 59 % (42-78) 06/04/20 05:18 Band Neutrophils % 4 % (3-5) 06/04/20 05:18 Lymphocytes % (Manual) 24 % (13-45) 06/04/20 05:18 Atypical Lymphs % 1 % (0) 06/03/20 06:14 Monocytes % (Manual) 13 % (3-13) 06/04/20 05:18 Eosinophils % (Manual) 0 % (0-6) 06/04/20 05:18 Basophils % (Manual) 0 % (0-2) 06/04/20 05:18 Abs Neuts (Manual) 13.7 10^3/uL (1.7-8.2) H 06/04/20 05:18 Abs Lymphs (Manual) 5.2 10^3/uL (0.5-4.7) H 06/04/20 05:18 Abs Monocytes (Manual) 2.8 10^3/uL (0.1-1.4) H 06/04/20 05:18 Absolute Eos (Manual) 0.0 10^3/uL (0.0-0.6) 06/04/20 05:18 Abs Basophils (Manual) 0.0 10^3/uL (0.0-0.2) 06/04/20 05:18 Toxic Granulation SLIGHT 05/30/20 06:10 Toxic Vacuolation PRESENT 05/30/20 06:10 Clumped Platelets PRESENT 06/01/20 04:48 Platelet Comment ADEQUATE 06/04/20 05:18 Polychromasia 1+ 06/04/20 05:18 Poikilocytosis SLIGHT 06/01/20 04:48 Anisocytosis 1+ 06/04/20 05:18 Ovalocytes SLIGHT 06/01/20 04:48 [place] Cells SLIGHT 06/01/20 04:48 ESR 27 mm/hr (0-15) H 05/29/20 21:27 PT 14.3 SEC (11.4-15.4) 05/29/20 21:50 INR 1.10 05/29/20 21:50 INR (Anticoag Therapy) Cancelled 05/29/20 21:27 VBG pH 7.49 (7.30-7.42) H 05/29/20 21:27 VBG pCO2 27.8 mmHg (35-63) L 05/29/20 21:27 VBG HCO3 20.5 mmol/L (20-32) 05/29/20 21:27 VBG Base Excess -1.4 mmol/L 05/29/20 21:27 Sodium 138.6 mmol/L (137-145) 06/04/20 05:18 Potassium 3.4 mmol/L (3.6-5.0) L 06/04/20 05:18 Chloride 103 mmol/L (98-107) 06/04/20 05:18 Carbon Dioxide 26 mmol/L (22-30) 06/04/20 05:18 Anion Gap 10 (5-19) 06/04/20 05:18 BUN 6 mg/dL (7-20) L 06/04/20 05:18 Creatinine 0.50 mg/dL (0.52-1.25) L 06/04/20 05:18 Est GFR ( Amer) > 60 (>60) 06/04/20 05:18 Est GFR (MDRD) Non-Af > 60 (>60) 06/04/20 05:18 Glucose 106 mg/dL (75-110) 06/04/20 05:18 POC Glucose 115 mg/dL (70-110) H 05/29/20 21:24 Lactic Acid 1.4 mmol/L (0.7-2.1) 05/30/20 06:10 Calcium 8.7 mg/dL (8.4-10.2) 06/04/20 05:18 Magnesium 2.0 mg/dL (1.6-2.3) 06/04/20 05:18 Total Bilirubin 0.5 mg/dL (0.2-1.3) 06/04/20 05:18 Direct Bilirubin 0.0 mg/dL (0.0-0.4) 06/04/20 05:18 Neonat Total Bilirubin Not Reportable 06/04/20 05:18 Neonat Direct Bilirubin Not Reportable 06/04/20 05:18 Neonat Indirect Bili Not Reportable 06/04/20 05:18 AST 30 U/L (17-59) 06/04/20 05:18 ALT 71 U/L (<50) H 06/04/20 05:18 Alkaline Phosphatase 107 U/L (38-126) 06/04/20 05:18 C-Reactive Protein 371.8 mg/L (<10.0) H 05/31/20 05:10 Total Protein 6.6 g/dL (6.3-8.2) 06/04/20 05:18 Albumin 3.2 g/dL (3.5-5.0) L 06/04/20 05:18 Lipase 22.8 U/L (23-300) L 05/29/20 21:27 Time Trough Drawn 1705 06/03/20 17:05 Vancomycin Trough 11.4 ug/mL (5.0-20.0) 06/03/20 17:05 SARS-CoV-2 (PCR) NEGATIVE (NEGATIVE) 05/31/20 15:30 Impressions: Elbow X-Ray 05/29/20 20:12 IMPRESSION: No evidence of acute displaced fracture of the elbow. Upper Extremity MRI 05/30/20 08:00 IMPRESSION: 1. No suggestion of osteomyelitis or abscess or gross myositis. 2. Extensive cellulitis. Plan Plan of Treatment: Given a prescription for p.o. clindamycin. Patient advised to do the daily dressings wet-to-dry dressings at home. He was strongly recommended to come to the emergency room if he noticed any changes like increasing drainage increasing pain increasing pain and redness. Also advised to come back to the ER if develops a spiking fever. Time Spent: Greater than 30 Minutes Stroke Is this a Stroke Patient?: No Acute Heart Failure - Is this a Heart Failure Patient?: No
[2020-06-04 13:12] LABS: PATH REVIEW PATHOLOGIST REVIEWED
[2020-06-04 13:58] VITALS: BP 108/58
== END 2020-06-04 14:36 | disposition home or self-care (01) | DRG 872 ==
LOC: ER 19:12 → EH 05-30 00:29 → 4W 05-30 17:02 → 4N 06-01 06:52
PROVIDERS: ADMIT Internal Medicine; ATTEND Internal Medicine
PROC: 0H9DXZZ Drainage of Right Lower Arm Skin, External Approach (ICD-10-PCS; principal; 2020-06-01 08:00)
DX: A40.0 Sepsis due to streptococcus, group A (principal); L03.113 Cellulitis of right upper limb; Z20.828 Contact with and (suspected) exposure to other viral communicable diseases; G40.909 Epilepsy, unspecified, not intractable, without status epilepticus; M19.90 Unspecified osteoarthritis, unspecified site; F41.9 Anxiety disorder, unspecified; F31.9 Bipolar disorder, unspecified; F43.10 Post-traumatic stress disorder, unspecified; I10 Essential (primary) hypertension; F90.9 Attention-deficit hyperactivity disorder, unspecified type; F17.210 Nicotine dependence, cigarettes, uncomplicated; F32.9 Major depressive disorder, single episode, unspecified; R51 Headache; F12.10 Cannabis abuse, uncomplicated; Z79.899 Other long term (current) drug therapy; Z88.6 Allergy status to analgesic agent; Z88.0 Allergy status to penicillin; Z71.6 Tobacco abuse counseling; Z82.61 Family history of arthritis; Z82.49 Family history of ischemic heart disease and other diseases of the circulatory system
CPT/HCPCS: 00400; 36415; 80053; 80202; 82565; 82803; 82962; 83605; 83690; 83735; 85025; 85610; 85652; 86140; 87040; 87070; 87075; 87077; 87205; 87635; 93005; 93010; 96374; 96375; 99140; 99285; A9576; C9803; J0744; J1100; J1170; J1650; J1956; J2250; J2270; J2405; J2550; J2704; J3010; J3370; J3490; J7030; J7060; S0119

== ENCOUNTER 2020-10-18 13:47 | Emergency (ER) | payer MEDICAID ==
[2020-10-18] MEDS ORDERED: ACETAMINOPHEN 325 MG TABLET PO ONE (14:12)
[2020-10-18] MEDS ORDERED: DIPH/PERTUSS(ACELL)/TETANUS VAC/PF 0.5 ML SYR (>=10YO) IM ONE (14:12)
[2020-10-18] MEDS ORDERED: HYDROCODONE/ACETAMINOPHEN 5-325 MG TABLET PO ONE (14:13)
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
[2020-10-18 16:54] VITALS: BP 120/70
== END 2020-10-18 16:55 | disposition home or self-care (01) ==
LOC: ER 13:47
DX: S73.101A Unspecified sprain of right hip, initial encounter (principal); S16.1XXA Strain of muscle, fascia and tendon at neck level, initial encounter; S63.91XA Sprain of unspecified part of right wrist and hand, initial encounter; S50.311A Abrasion of right elbow, initial encounter; S70.311A Abrasion, right thigh, initial encounter; S80.211A Abrasion, right knee, initial encounter; S90.812A Abrasion, left foot, initial encounter; M54.5 Low back pain; V03.90XA Pedestrian on foot injured in collision with car, pick-up truck or van, unspecified whether traffic or nontraffic accident, initial encounter; Y93.89 Activity, other specified; S00.01XA Abrasion of scalp, initial encounter; W25.XXXA Contact with sharp glass, initial encounter; F17.200 Nicotine dependence, unspecified, uncomplicated; F12.10 Cannabis abuse, uncomplicated; I10 Essential (primary) hypertension; Z88.0 Allergy status to penicillin; Z88.6 Allergy status to analgesic agent; Z23 Encounter for immunization
CPT/HCPCS: 70450; 72070; 72110; 72125; 72170; 90471; 90715; 99285